=== PATIENT | male | born 1950 | race Two or more races ===

== ENCOUNTER 2018-06-07 04:07 | Inpatient (IN) | payer OTHER, MEDICARE ==
[~2018-06-07] VITALS: Ht 160 cm; Wt 69.4 kg
[2018-06-07] VITALS (9 sets, daily range): BP systolic 114–159; BP diastolic 56–89
[2018-06-07] MEDS ORDERED: IV NORMAL SALINE 500ML BAG 500 ML IV ONE (04:45)
--- NOTE | 2018-06-07 04:53 | PHYS DOC ---
Past Medical History Past Medical History: Diabetes-Type II, High Cholesterol, Hypertension, Other Additional Past Medical Histor: Stomach Ulcers Past Surgical History: Other Additional Past Surgical Histo: Elbow Surgery Alcohol Use: None Drug Use: None Adult General Chief Complaint Chief Complaint: ABDOMINAL PAIN HPI HPI Patient is a 68 year old male who presents with epigastric pain. The patient states he has a history of ulcers. This morning at 3 AM, he was awoke from his sleep with severe epigastric and abdominal pain. The pain was sharp in nature. He took some antacid type medications but the pain only worse and so he came to the ER. He did not have chest pain or shortness of breath. He had no nausea or vomiting. He has otherwise been at baseline health with no recent illness, fever , chills. Denies urinary symptoms. Pain is currently improving since checking in to the emergency department. Review of Systems Review of Systems Constitutional: Denies fever or chills Eyes: Denies HENT: Denies Respiratory: Denies Cardiovascular: No additional information GI: Denies nausea or vomiting : Denies dysuria or hematuria Musculoskeletal: Denies back pain Integument: Denies rash Neurologic: Denies headache All other systems were reviewed and found to be within normal limits, except as documented in this note. Current Medications Current Medications Current Medications Medications (Trade) Dose Ordered Sig/Judy Start Time Stop Time Status Last Admin Dose Admin Famotidine (Pepcid Vial) 20 mg 1X ONCE 06/07/18 05:00 06/07/18 05:01 DC 06/07/18 04:58 20 MG Sodium Chloride 500 ml @ 500 mls/hr 1X ONCE 06/07/18 04:45 06/07/18 05:44 DC 06/07/18 04:48 500 MLS/HR Allergies Allergies Allergies Coded Allergies Type Severity Reaction Last Updated Verified No Known Drug Allergies 06/07/18 No Physical Exam Physical Exam Constitutional: Well developed, well nourished, no acute distress, non-toxic appearance HENT: Normocephalic, atraumatic, bilateral external ears normal, oropharynx moist Eyes: PERRLA, EOMI, conjunctiva normal Neck: Normal range of motion, no tenderness Cardiovascular:Heart rate regular rhythm, no murmur Lungs & Thorax: Bilateral breath sounds clear to auscultation Abdomen: Bowel sounds normal, soft, + TTP over the epigastrium, no guarding or rebound Skin: Warm, dry, no erythema, no rash Back: No tenderness Extremities: No edema Neurologic: Alert and oriented X 3 Psychologic: Affect normal Current Patient Data Vital Signs Vital Signs Date Time Temp Pulse Resp B/P (MAP) Pulse Ox O2 Delivery O2 Flow Rate FiO2 06/07/18 06:25 75 14 138/81 (100) 96 Room Air 06/07/18 04:20 97.4 97.4 Lab Values Laboratory Tests Test 06/07/18 04:43 06/07/18 06:45 White Blood Count 8.8 x10^3/uL (4.0-11.0) Red Blood Count 5.47 x10^6/uL (4.30-5.70) Hemoglobin 10.9 g/dL (13.0-17.5) L Hematocrit 33.1 % (39.0-53.0) L Mean Corpuscular Volume 61 fL (79-100) L Mean Corpuscular Hemoglobin 20 pg (25-35) L Mean Corpuscular Hemoglobin Concent 33 g/dL (31-37) Red Cell Distribution Width 16.9 % (11.5-14.5) H Platelet Count 176 x10^3/uL (140-400) Neutrophils (%) (Auto) 62 % (31-73) Lymphocytes (%) (Auto) 22 % (24-48) L Monocytes (%) (Auto) 9 % (0-9) Eosinophils (%) (Auto) 7 % (0-3) H Basophils (%) (Auto) 1 % (0-3) Neutrophils # (Auto) 5.5 x10^3uL (1.8-7.7) Lymphocytes # (Auto) 1.9 x10^3/uL (1.0-4.8) Monocytes # (Auto) 0.7 x10^3/uL (0.0-1.1) Eosinophils # (Auto) 0.6 x10^3/uL (0.0-0.7) Basophils # (Auto) 0.1 x10^3/uL (0.0-0.2) Platelet Estimate Pending Sodium Level 142 mmol/L (136-145) Potassium Level 4.3 mmol/L (3.5-5.1) Chloride Level 107 mmol/L (98-107) Carbon Dioxide Level 25 mmol/L (21-32) Anion Gap 10 (6-14) Blood Urea Nitrogen 25 mg/dL (8-26) Creatinine 1.5 mg/dL (0.7-1.3) H Estimated GFR (Cockcroft-Gault) 46.3 Glucose Level 264 mg/dL (70-99) H Calcium Level 9.2 mg/dL (8.5-10.1) Total Bilirubin 0.4 mg/dL (0.2-1.0) Direct Bilirubin 0.1 mg/dL (0.0-0.2) Aspartate Amino Transferase (AST) 12 U/L (15-37) L Alanine Aminotransferase (ALT) 22 U/L (16-63) Alkaline Phosphatase 93 U/L (46-116) Troponin I Quantitative 0.019 ng/mL (0.000-0.055) Total Protein 6.9 g/dL (6.4-8.2) Albumin 3.5 g/dL (3.4-5.0) Lipase 127 U/L (73-393) Stool Occult Blood Negative (NEG) Laboratory Tests 06/07/18 04:43 Laboratory Tests 06/07/18 04:43 EKG EKG No STEMI Repeat EKG, done at 6:22 AM shows normal sinus rhythm at a rate of 71 bpm, normal axis, normal intervals, nonspecific ST/T changes, most prominent anteriorly, unchanged compared to the patient's initial EKG. There are no old EKGs for comparison. Interpretation Time: 04:25 Radiology/Procedures Radiology/Procedures [PROCEDURE: CT ABDOMEN PELVIS WO CONTRAST INDICATION: epigastric pain COMPARISON: None. TECHNIQUE: Axial CT images obtained through the abdomen and pelvis without contrast. Limited assessment of solid organ structures and vasculature secondary to lack of intravenous contrast.. One or more of the following individualized dose reduction techniques were utilized for this examination: 1. Automated exposure control; 2. Adjustment of the mA and/or kV according to patient size; 3. Use of iterative reconstruction technique. FINDINGS: Nodular opacity at the left lung base measuring up to about 8 mm with linear component. Mild peribronchial thickening at lung bases. Coronary artery calcific atherosclerosis as well as aortic valvular calcifications. At least moderate calcific atherosclerosis. Small fat-containing inguinal hernias. No intrahepatic bile duct dilation. The gallbladder is somewhat distended at time of exam with some gallstones within. No peripancreatic fluid collection. Duodenal diverticulum. Spleen unremarkable. No left-sided hydronephrosis. Urinary bladder is partially distended. No right-sided hydronephrosis. Colonic diverticulosis. No periappendiceal inflammation. No dilated loops of bowel to suggest obstruction. Degenerative changes the spine with multilevel central canal and neural foraminal stenosis. Mild wedging of some of the vertebral bodies including L3 and L2. IMPRESSION: 1. No evidence of bowel obstruction or appendicitis. 2. The gallbladder somewhat distended at time of exam with suspected gallstones within. Would correlate with symptoms in the region and if the patient has any symptoms of gallbladder disease a ultrasound could be helpful to further evaluate. 3. Linear nodular opacity at the left lung base. The most likely cause is nodular atelectasis given the location and morphology but it may be helpful to obtain a follow-up CT in 3 months to ensure no increase given the nodular component. 4. There is some mild peribronchial thickening identified at the right greater than left lung base with mild nodularity right lung base. Could be inflammatory in nature but would correlate with symptoms to ensure that there is not a infectious causes from causes such as bronchitis. ] Course & Med Decision Making Course & Med Decision Making Pertinent Labs and Imaging studies reviewed. (See chart for details) 04:45: Patient is seen and examined. His symptoms have improved since checking in to the ER although he does continue to have some pain. He is tender over the epigastrium. Standard abdominal pain workup is ordered. He did have an EKG on arrival which does not appear positive for any ST changes concerning for ischemia. Pepcid is ordered. 06:00: Patient is seen for epigastric pain, sudden onset. Hx of ulcer disease. No free air seen on CT scan. Radiologist read pending. Also noted to have mild Cr elevation. IVF's ordered. NATHAN to Dr. Gant. Please f/u on CT and symptom control. Patient given pepcid. 6:45 AM: Patient care was assumed at 6 AM shift change. He presented to the emergency department after awakening at about 3 AM with acute central abdominal discomfort. Patient described it as an intense cramping pain. He was reportedly diaphoretic, and looks poorly when he came in. He had a few episodes of vomiting. He states he had a bowel movement, and he states his stools have been dark recently, but that did not help his pain. After arrival in the emergency department at the time of my assessment he is feeling significantly better and his pain is completely resolved. He did not have any chest pain at any time. He denies any shortness of breath. He does have a history of gastric ulcers, but he states that his ulcer pain is different than this pain and he has never had pain like this before. He is noted to be somewhat anemic. On rectal exam, which I performed, his stool appeared brown. Hemoccult is currently pending. He has no reproducible tenderness to palpation on repeat abdominal exam. His right upper quadrant is nontender and Staley sign is absent. His EKG does show some nonspecific ST/T changes, although repeat EKG is unchanged from his original. His troponin is not elevated. I discussed treatment options with the patient. I do feel that at least overnight observation is appropriate given the acuity of his presentation. I discussed the case with the patient's PCP who will admit the patient for further observation. Dragon Disclaimer Dragon Disclaimer This electronic medical record was generated, in whole or in part, using a voice recognition dictation system. Departure Departure Impression: Primary Impression: Acute abdominal pain Additional Impressions: Anemia Abnormal EKG Disposition: ADMITTED INPATIENT Admitting Physician: Jorge Gore Condition: STABLE Referrals: JORGE GORE MD (PCP) Problem Qualifiers REJI ESCUDERO DO Jun 07, 2018 04:53 DOMINGA GANT MD Jun 07, 2018 06:23
[2018-06-07 04:54] LABS: BASO # 0.1 x10^3/uL (0.0-0.2); BASO % 1 % (0-3); EOS # 0.6 x10^3/uL (0.0-0.7); EOS % 7 % (0-3); HEMATOCRIT 33.1 % (39.0-53.0); HEMOGLOBIN 10.9 g/dL (13.0-17.5); LYMPH # 1.9 x10^3/uL (1.0-4.8); LYMPH % 22 % (24-48); MEAN CORPUSCULAR HEMOGLOBIN 20 pg (25-35); MEAN CORPUSCULAR HGB CONC 33 g/dL (31-37); MEAN CORPUSCULAR VOLUME 61 fL (79-100); MONO # 0.7 x10^3/uL (0.0-1.1); MONO % 9 % (0-9); NEUT # 5.5 x10^3uL (1.8-7.7); NEUT % 62 % (31-73); PLATELET COUNT 176 x10^3/uL (140-400); RED BLOOD COUNT 5.47 x10^6/uL (4.30-5.70); RED CELL DISTRIBUTION WIDTH 16.9 % (11.5-14.5); WHITE BLOOD COUNT 8.8 x10^3/uL (4.0-11.0)
[2018-06-07] MEDS ORDERED: FAMOTIDINE 20 MG/2 ML VIAL IVP ONE (05:00)
[2018-06-07 05:10] LABS: CALCIUM 9.2 mg/dL (8.5-10.1); CREATININE 1.5 mg/dL (0.7-1.3); GFR 46.3; POTASSIUM 4.3 mmol/L (3.5-5.1)
[2018-06-07 05:15] LABS: ALBUMIN 3.5 g/dL (3.4-5.0); DIRECT BILIRUBIN 0.1 mg/dL (0.0-0.2); TOTAL BILIRUBIN 0.4 mg/dL (0.2-1.0); TOTAL PROTEIN 6.9 g/dL (6.4-8.2)
--- NOTE | 2018-06-07 06:00 | EKG ---
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
--- NOTE | 2018-06-07 06:19 | RAD ---
INDICATION: epigastric pain COMPARISON: None. TECHNIQUE: Axial CT images obtained through the abdomen and pelvis without contrast. Limited assessment of solid organ structures and vasculature secondary to lack of intravenous contrast.. One or more of the following individualized dose reduction techniques were utilized for this examination: 1. Automated exposure control; 2. Adjustment of the mA and/or kV according to patient size; 3. Use of iterative reconstruction technique. FINDINGS: Nodular opacity at the left lung base measuring up to about 8 mm with linear component. Mild peribronchial thickening at lung bases. Coronary artery calcific atherosclerosis as well as aortic valvular calcifications. At least moderate calcific atherosclerosis. Small fat-containing inguinal hernias. No intrahepatic bile duct dilation. The gallbladder is somewhat distended at time of exam with some gallstones within. No peripancreatic fluid collection. Duodenal diverticulum. Spleen unremarkable. No left-sided hydronephrosis. Urinary bladder is partially distended. No right-sided hydronephrosis. Colonic diverticulosis. No periappendiceal inflammation. No dilated loops of bowel to suggest obstruction. Degenerative changes the spine with multilevel central canal and neural foraminal stenosis. Mild wedging of some of the vertebral bodies including L3 and L2. IMPRESSION: 1. No evidence of bowel obstruction or appendicitis. 2. The gallbladder somewhat distended at time of exam with suspected gallstones within. Would correlate with symptoms in the region and if the patient has any symptoms of gallbladder disease a ultrasound could be helpful to further evaluate. 3. Linear nodular opacity at the left lung base. The most likely cause is nodular atelectasis given the location and morphology but it may be helpful to obtain a follow-up CT in 3 months to ensure no increase given the nodular component. 4. There is some mild peribronchial thickening identified at the right greater than left lung base with mild nodularity right lung base. Could be inflammatory in nature but would correlate with symptoms to ensure that there is not a infectious causes from causes such as bronchitis. Electronically signed by: Butch Harding MD (06/07/2018 6:16 AM) [id number]
--- NOTE | 2018-06-07 06:28 | EKG ---
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
[2018-06-07 06:53] LABS: FECAL OB PT NEGATIVE (NEG)
[2018-06-07 07:25] LABS: PLT ESTIMATE ADEQUATE (ADEQUATE); POIKILOCYTOSIS PRESENT; POLYCHROMASIA PRESENT
[2018-06-07 07:26] LABS: ANISOCYTOSIS PRESENT; MICROCYTOSIS MARKED; TARGET CELLS MOD; TEAR DROP CELLS FEW
[2018-06-07 07:28] LABS: OVALOCYTES OCC
[2018-06-07 07:29] LABS: HYPOCHROMIA MOD
--- NOTE | 2018-06-07 08:25 | RAD ---
Right upper quadrant abdominal ultrasound, 06/07/2018: HISTORY: Pain The gallbladder appears mildly distended measuring 10 x 3.9 cm. It contains echogenic material with some posterior acoustic shadowing. The appearance is that of a combination of sludge and gallstones. No gallbladder wall thickening is seen. The common hepatic duct is of normal caliber. There is no evidence of a hepatic mass or bile duct dilatation. The pancreas was obscured by overlying bowel. The visualized portions of the right kidney are unremarkable. IMPRESSION: Mildly distended gallbladder containing sludge and calculi. Electronically signed by: Navin Stanford MD (06/07/2018 8:21 AM) [facility]
[2018-06-07] MEDS ORDERED: DEXTROSE 50% 25 GM / 50ML DISP.SYRIN. IV PRN ×2 (09:15→18:45)
[2018-06-07] MEDS ORDERED: METF10007 PO (09:36)
[2018-06-07] MEDS ORDERED: ATOR40TA59 PO (09:36)
[2018-06-07] MEDS ORDERED: GLIP10TA13 PO (09:36)
[2018-06-07] MEDS ORDERED: SITA100T PO (09:36)
[2018-06-07] MEDS ORDERED: LISI10TA2 PO (09:36)
--- NOTE | 2018-06-07 09:50 | PDOC ---
Provider Note Provider Note Pt seen.H&P dictated. #[id number] GERMÁN GORE MD Jun 07, 2018 09:50
--- NOTE | 2018-06-07 10:24 | HP ---
ADMIT DATE: 06/07/2018 LOCATION: [facility] REASON FOR ADMISSION TO THE HOSPITAL: Severe abdominal pain and possible gallbladder attack. HISTORY OF PRESENT ILLNESS: The patient is a 68-year-old male patient who has history of diabetes, hypertension and hyperlipidemia. He was doing relatively well and had severe abdominal pain early this morning. He was very nauseous, vomiting, lightheaded, was brought to the hospital. He had a CT scan which shows possible gallbladder distention. His ultrasound of the abdomen this morning shows gallbladder distention with gallstones. The patient was admitted with acute cholecystitis with gallbladder attack. PAST MEDICAL HISTORY: He has diabetes, hypertension, hyperlipidemia. PAST SURGICAL HISTORY: Stomach ulcers in the past, had EGD, had elbow surgery. ALLERGIES: No known drug allergies. MEDICATIONS AT HOME: The patient is on atorvastatin 40 mg daily, lisinopril 10 mg twice a day, glipizide 10 mg twice a day, metformin 1000 mg twice a day, Januvia 100 mg daily. PERSONAL HISTORY: No history of smoking, alcohol, drug abuse. The patient lives with his . ALLERGIES: No known drug allergies. REVIEW OF SYSTEMS: CARDIAC: No chest pain. GASTROINTESTINAL: Abdominal pain with nausea and vomiting, no diarrhea. Rest of the 14-system was reviewed and negative. PHYSICAL EXAMINATION: GENERAL: The patient is much better this morning. VITAL SIGNS: Temperature 97, pulse 77, respirations 18, blood pressure 138/67, 95 on room air. HEENT: Head is atraumatic. Pupils equal. Oral cavity: No congestion. NECK: Supple. Thyroid not enlarged. JVD not elevated. CHEST: Symmetrical. CARDIOVASCULAR: S1, S2. LUNGS: Clear to auscultation. ABDOMEN: Slight tender in the right upper quadrant. No rebound. Bowel sounds present, no mass palpable. EXTERNAL GENITALIA: No Nicole. RECTAL: Deferred. EXTREMITIES: No calf tenderness, no edema. Pulses 1+. NEUROLOGIC: Cranial nerves intact. Power 5/5 in all extremities. LABORATORY DATA: Shows a white count of 9, hemoglobin 11, platelets 176. Electrolytes show sodium 142, potassium 4.3, chloride 107, bicarbonate 25, anion gap 10, BUN 25, creatinine 1.5, glucose 246. LFTs were normal. Troponin 0.[address] of abdomen and pelvis, which shows gallbladder distention, sonogram shows gallstones in the gallbladder. FINAL IMPRESSION: 1. Acute abdominal pain secondary to gallbladder attack. 2. Gallstones with gallbladder attack. 3. Diabetes. 4. Hypertension. 5. Hyperlipidemia. PLAN: At this time, the patient is admitted to the hospital, n.p.o., IV fluids, surgical consult, probably need laparoscopic cholecystectomy. GERMÁN GORE MD DR: SARAH/jamey JOB#: [id number] / [id number]
--- NOTE | 2018-06-07 10:54 | PDOC2 ---
TITO CARR INTERIOR PAINTER 06/07/18 1054: CONSULT Date of Consult Date of Consult DATE: 06/07/18 TIME: 10:47 Reason for Consult Reason for Consult: cholelithiasis Referring Physician Referring Physician: Dr Oquendo Identification/Chief Complaint Chief Complaint abdominal pain Source Source: Chart review, Patient History of Present Illness Reason for Visit: Admitted with acute onset epigastric pain. Awoke at 3 am in severe pain. Tried maalox and prilosec(was worried about ulcers), however this did not help his pain. Denies n/v. Past Medical History Cardiovascular: HTN, Hyperlipidemia GI: Peptic Ulcer disease Past Surgical History Past Surgical History: No pertinent history Family History Family History: Other (noncontributory to current illness) Social History No ALCOHOL: none Drugs: None Lives: with Family Current Problem List Problem List Problems Medical Problems: (1) Abnormal EKG Status: Acute (2) Acute abdominal pain Status: Acute (3) Anemia Status: Acute Current Medications Current Medications Current Medications Sodium Chloride 500 ml @ 500 mls/hr 1X ONCE IV Last administered on at 04:48; Start 06/07/18 at 04:45; Stop 06/07/18 at 05:44; Status DC Famotidine (Pepcid Vial) 20 mg 1X ONCE IVP Last administered on 06/07/18at 04: 58; Start 06/07/18 at 05:00; Stop 06/07/18 at 05:01; Status DC Insulin Human Lispro (HumaLOG) 0-7 UNITS TIDWMEALS SQ ; Start 06/07/18 at 12:00 Dextrose (Dextrose 50%-Water Syringe) 12.5 gm PRN Q15MIN PRN IV SEE COMMENTS; Start 06/07/18 at 09:15 Dextrose/Sodium Chloride 1,000 ml @ 100 mls/hr Q10H IV ; Start 06/07/18 at 09: 45 Influenza Virus Vaccine (Afluria Trivalent 2320-0023 Syringe) 0.5 ml ONCE ONCE VAX IM ; Start 06/07/18 at 12:00; Stop 06/07/18 at 12:01 Active Scripts Active Reported Glipizide 10 Mg Tablet 1 Tab PO BIDAC Lisinopril 10 Mg Tablet 1 Tab PO BID Atorvastatin Calcium 40 Mg Tablet 1 Tab PO DAILY Januvia (Sitagliptin Phosphate) 100 Mg Tablet 1 Tab PO DAILY Metformin Hcl 1,000 Mg Tablet 1,000 Mg PO BIDWMEALS Allergies Allergies: Coded Allergies: No Known Drug Allergies (Unverified , 06/07/18) ROS General: No: Chills, Other (fevers) PSYCHOLOGICAL ROS: No: Anxiety, Depression Eyes: No Blurry vision, No Double vision HEENT: No: Heacaches, Sore Throat Hematological and Lymphatic: No: Bleeding Problems, Blood Clots Respiratory: No: Cough, SOB with excertion Cardiovascular: No Chest Pain, No Palpitations Gastrointestinal: Yes Other (see hpi) Genitourinary: No Dysuria, No Hematuria Neurological: No Confusion, No Impaired Coord/balance Skin: No Pruritus, No Rash Physical Exam General: Alert, Oriented X3, Cooperative, No acute distress HEENT: PERRLA, Mucous membr. moist/pink Lungs: Clear to auscultation, Normal air movement Heart: Regular rate, Normal S1, Normal S2, No murmurs Abdomen: Normal bowel sounds, Soft, No tenderness, No hepatosplenomegaly Extremities: No clubbing, No cyanosis Skin: No rashes, No breakdown Neuro: Normal gait, Normal speech Psych/Mental Status: Mental status NL, Mood NL MUSCULOSKELETAL: No deformity, No swelling Vitals VITALS Vital Signs Date Time Temp Pulse Resp B/P (MAP) Pulse Ox O2 Delivery O2 Flow Rate FiO2 06/07/18 09:00 97.9 77 18 138/67 (90) 95 Room Air 97.9 Labs Labs Laboratory Tests Test 06/07/18 04:43 06/07/18 06:45 06/07/18 09:04 06/07/18 09:07 White Blood Count 8.8 x10^3/uL (4.0-11.0) Red Blood Count 5.47 x10^6/uL (4.30-5.70) Hemoglobin 10.9 g/dL (13.0-17.5) Hematocrit 33.1 % (39.0-53.0) Mean Corpuscular Volume 61 fL (79-100) Mean Corpuscular Hemoglobin 20 pg (25-35) Mean Corpuscular Hemoglobin Concent 33 g/dL (31-37) Red Cell Distribution Width 16.9 % (11.5-14.5) Platelet Count 176 x10^3/uL (140-400) Neutrophils (%) (Auto) 62 % (31-73) Lymphocytes (%) (Auto) 22 % (24-48) Monocytes (%) (Auto) 9 % (0-9) Eosinophils (%) (Auto) 7 % (0-3) Basophils (%) (Auto) 1 % (0-3) Neutrophils # (Auto) 5.5 x10^3uL (1.8-7.7) Lymphocytes # (Auto) 1.9 x10^3/uL (1.0-4.8) Monocytes # (Auto) 0.7 x10^3/uL (0.0-1.1) Eosinophils # (Auto) 0.6 x10^3/uL (0.0-0.7) Basophils # (Auto) 0.1 x10^3/uL (0.0-0.2) Platelet Estimate Adequate (ADEQUATE) Large Platelets Occ Giant Platelets Occ Polychromasia Present Hypochromasia Mod Poikilocytosis Present Anisocytosis Present Microcytosis Marked Target Cells Mod Tear Drop Cells Few Ovalocytes Occ Sodium Level 142 mmol/L (136-145) Potassium Level 4.3 mmol/L (3.5-5.1) Chloride Level 107 mmol/L (98-107) Carbon Dioxide Level 25 mmol/L (21-32) Anion Gap 10 (6-14) Blood Urea Nitrogen 25 mg/dL (8-26) Creatinine 1.5 mg/dL (0.7-1.3) Estimated GFR (Cockcroft-Gault) 46.3 Glucose Level 264 mg/dL (70-99) Calcium Level 9.2 mg/dL (8.5-10.1) Total Bilirubin 0.4 mg/dL (0.2-1.0) Direct Bilirubin 0.1 mg/dL (0.0-0.2) Aspartate Amino Transf (AST/SGOT) 12 U/L (15-37) Alanine Aminotransferase (ALT/SGPT) 22 U/L (16-63) Alkaline Phosphatase 93 U/L (46-116) Troponin I Quantitative 0.019 ng/mL (0.000-0.055) Total Protein 6.9 g/dL (6.4-8.2) Albumin 3.5 g/dL (3.4-5.0) Lipase 127 U/L (73-393) Stool Occult Blood Negative (NEG) Glucose (Fingerstick) 89 mg/dL (70-99) 77 mg/dL (70-99) Laboratory Tests Test 06/07/18 04:43 06/07/18 06:45 06/07/18 09:04 06/07/18 09:07 White Blood Count 8.8 x10^3/uL (4.0-11.0) Red Blood Count 5.47 x10^6/uL (4.30-5.70) Hemoglobin 10.9 g/dL (13.0-17.5) Hematocrit 33.1 % (39.0-53.0) Mean Corpuscular Volume 61 fL (79-100) Mean Corpuscular Hemoglobin 20 pg (25-35) Mean Corpuscular Hemoglobin Concent 33 g/dL (31-37) Red Cell Distribution Width 16.9 % (11.5-14.5) Platelet Count 176 x10^3/uL (140-400) Neutrophils (%) (Auto) 62 % (31-73) Lymphocytes (%) (Auto) 22 % (24-48) Monocytes (%) (Auto) 9 % (0-9) Eosinophils (%) (Auto) 7 % (0-3) Basophils (%) (Auto) 1 % (0-3) Neutrophils # (Auto) 5.5 x10^3uL (1.8-7.7) Lymphocytes # (Auto) 1.9 x10^3/uL (1.0-4.8) Monocytes # (Auto) 0.7 x10^3/uL (0.0-1.1) Eosinophils # (Auto) 0.6 x10^3/uL (0.0-0.7) Basophils # (Auto) 0.1 x10^3/uL (0.0-0.2) Platelet Estimate Adequate (ADEQUATE) Large Platelets Occ Giant Platelets Occ Polychromasia Present Hypochromasia Mod Poikilocytosis Present Anisocytosis Present Microcytosis Marked Target Cells Mod Tear Drop Cells Few Ovalocytes Occ Sodium Level 142 mmol/L (136-145) Potassium Level 4.3 mmol/L (3.5-5.1) Chloride Level 107 mmol/L (98-107) Carbon Dioxide Level 25 mmol/L (21-32) Anion Gap 10 (6-14) Blood Urea Nitrogen 25 mg/dL (8-26) Creatinine 1.5 mg/dL (0.7-1.3) Estimated GFR (Cockcroft-Gault) 46.3 Glucose Level 264 mg/dL (70-99) Calcium Level 9.2 mg/dL (8.5-10.1) Total Bilirubin 0.4 mg/dL (0.2-1.0) Direct Bilirubin 0.1 mg/dL (0.0-0.2) Aspartate Amino Transf (AST/SGOT) 12 U/L (15-37) Alanine Aminotransferase (ALT/SGPT) 22 U/L (16-63) Alkaline Phosphatase 93 U/L (46-116) Troponin I Quantitative 0.019 ng/mL (0.000-0.055) Total Protein 6.9 g/dL (6.4-8.2) Albumin 3.5 g/dL (3.4-5.0) Lipase 127 U/L (73-393) Stool Occult Blood Negative (NEG) Glucose (Fingerstick) 89 mg/dL (70-99) 77 mg/dL (70-99) Assessment/Plan Assessment/Plan Symptomatic cholelithiasis Noted lung findings on CT, CXR pending will review with Dr Mike knowles NPO MORE MCGARRY MD 06/07/18 1506: CONSULT Assessment/Plan Assessment/Plan pt seen, interviewed and examined offered l/s julissa explained risks including but not limited to bleeding, infection, injury to bowel, liver or bile ducts with resultant need for further interventions, possible open procedure he will proceed Thanks for consult TITO CARR APRN Jun 07, 2018 10:54 MORE MCGARRY MD Jun 07, 2018 15:06
[2018-06-07] MEDS ORDERED: IV RINGERS,LACTATED 1000ML 1,000 ML IV SCH (11:18)
[2018-06-07] MEDS ORDERED: fentaNYL PF VIAL 100 MCG/2 ML VIAL IV PRN ×2 (11:30)
[2018-06-07] MEDS ORDERED: MORPHINE SULFATE 2 MG/ML VIAL. IV PRN (11:30)
[2018-06-07] MEDS ORDERED: PROCHLORPERAZINE 10 MG/2 ML VIAL. IV PRN (11:30)
[2018-06-07] MEDS ORDERED: LIDOCAINE 1% PF 2 ML VIAL. ID PRN (11:30)
[2018-06-07] MEDS ORDERED: HYDROmorphone 2 MG/ML VIAL IV PRN (11:30)
[2018-06-07] MEDS ORDERED: ONDANSETRON PF 4 MG/2 ML VIAL. IV PRN ×2 (11:30→18:45)
[2018-06-07 11:41] LABS: PROTHROMBIN TIME PATIENT 12.7 SEC (11.7-14.0)
[2018-06-07] MEDS: IV DEXTROSE 5% - 0.9 % NACL 1,000 ML IV SCH ×2 (11:43→19:45)
[2018-06-07] MEDS: INSULIN LISPRO 300 UNITS/3 ML INSULN.PEN. SQ SCH ×2 (12:00→17:00)
--- NOTE | 2018-06-07 13:03 | RAD ---
Chest, 2 views, 06/07/2018: HISTORY: Preop evaluation for gallbladder surgery The heart size is normal. No pulmonary infiltrate is seen. There is no evidence of pleural fluid. Mild spurring is present in the spine. IMPRESSION: No acute cardiopulmonary abnormality is detected. Electronically signed by: Navin Stanford MD (06/07/2018 12:59 PM) [facility]
[2018-06-07] MEDS ORDERED: MIDAZOLAM HCL/PF 2 MG/2 ML VIAL. ONE (14:03)
[2018-06-07] MEDS ORDERED: fentaNYL PF VIAL 100 MCG/2 ML VIAL ONE (14:03)
[2018-06-07] MEDS ORDERED: ROCURONIUM 100 MG/10 ML VIAL. ONE (14:03)
[2018-06-07] MEDS ORDERED: SEVOFLURANE 61 TO 120 MINUTES. IH ONE ×2 (14:03→17:48)
[2018-06-07] MEDS ORDERED: NEOSTIGMINE 10 MG/10 ML VIAL. ONE ×2 (14:03→14:04)
[2018-06-07] MEDS ORDERED: LIDOCAINE 2% PF Vial for OR 5 ML VIAL. ONE (14:04)
[2018-06-07] MEDS ORDERED: GLYCOPYRROLATE 1 MG/5 ML VIAL. ONE (14:04)
[2018-06-07] MEDS ORDERED: PROPOFOL 20 ML IV ONE (14:04)
[2018-06-07] MEDS ORDERED: ONDANSETRON PF 4 MG/2 ML VIAL. ONE (14:04)
[2018-06-07] MEDS ORDERED: DEXAMETHASONE SOD PHOS 20 MG/5 ML VIAL. ONE (14:04)
[2018-06-07] MEDS ORDERED: GLUCAGON,HUMAN RECOMBINANT 1 MG/ML VIAL. ONE (15:33)
[2018-06-07] MEDS ORDERED: IOHEXOL 300 MG/ML 100ML VIAL. ONE (15:33)
[2018-06-07] MEDS ORDERED: SURGICEL HEMOSTAT 4X8 EACH. ONE (15:33)
[2018-06-07] MEDS ORDERED: BUPIVAC MPF-EPI 0.5%-1:200000 30 ML VIAL. ONE (15:33)
[2018-06-07] MEDS ORDERED: ePHEDrine PF IN SALINE 50 MG/5 ML DISP.SYRIN IV ONE (17:04)
[2018-06-07] MEDS ORDERED: MORPHINE SULFATE 10 MG/ML VIAL. ONE (17:26)
[2018-06-07] MEDS ORDERED: IOHEXOL 300 MG/ML 100ML VIAL. IV ONE (17:30)
[2018-06-07] MEDS ORDERED: BUPIVAC MPF-EPI 0.5%-1:200000 30 ML VIAL. INJ ONE (17:30)
[2018-06-07] MEDS ORDERED: PHENYLEPHRINE in 0.9% NACL PF 1 MG/10 ML SYRINGE. IV ONE (17:47)
--- NOTE | 2018-06-07 18:40 | PDOC ---
BRIEF OPERATIVE NOTE Date: Jun 07, 2018 Pre-Op Diagnosis symptomatic cholelithiasis Post-Op Diagnosis same, abdominal adhesions Procedure Performed l/s cholecystectomy TITI Surgeon Mike Utility Sales Representative Yuki HUGO Anesthesia Type: General Blood Loss 25cc IV Fluid 700cc Specimens Obtained GB Findings omental adhesions to abdominal wall adhesions between liver and abd wall/diaphragm Complications none Operative Note Wk # [id number] MORE MCGARRY MD Jun 07, 2018 18:40
[2018-06-07] MEDS ORDERED: 0.9 % SODIUM CHLORIDE 10 ML DISP.SYRIN. IV PRN (18:45)
[2018-06-07] MEDS ORDERED: diphenhydrAMINE HCL 25 MG CAPSULE PO PRN (18:45)
--- NOTE | 2018-06-07 20:06 | OP ---
DATE OF SURGERY: 06/07/2018 PREOPERATIVE DIAGNOSIS: Symptomatic cholelithiasis. POSTOPERATIVE DIAGNOSIS: Symptomatic cholelithiasis with abdominal adhesions. PROCEDURES: 1. Laparoscopic cholecystectomy. 2. Lysis of adhesions. SURGEON: Brad Mcgarry MD CAR HOPPER: BETHEL Lerner ANESTHESIA: General endotracheal. ESTIMATED BLOOD LOSS: 25 mL. IV: 700 mL. INDICATIONS: The patient is a 68-year-old with acute abdominal pain. Ultrasound shows stones and sludge in his gallbladder. He is brought for cholecystectomy. OPERATIVE FINDINGS: There were several dense adhesions between the liver and the diaphragm and abdominal wall. There were omental adhesions in the midline, upper abdomen and toward the left. The remainder of the abdomen failed to reveal obvious abnormalities. The gallbladder was edematous. DESCRIPTION OF PROCEDURE: The patient brought to the operating suite, given a general endotracheal anesthetic and the abdomen prepped and draped in usual sterile fashion. A supraumbilical incision was infiltrated with local anesthetic, incised and a 5 mm Visiport used to safely gain access into the abdominal cavity. Pneumoperitoneum established. Camera inserted. Inspection carried out with results as noted above. Due to the omental adhesions, the only open port location was the lateral port site and as such, the port was placed under direct vision. This allowed using a "pop" scissor and laparoscopic LigaSure to take down the omental adhesions and expose the upper abdomen. Similarly, we used the LigaSure to divide the adhesions between the liver and abdominal wall and diaphragm. This allowed placement of the epigastric and midclavicular ports under direct vision and the gallbladder was retracted superolaterally. Omental adhesions were carefully taken down with blunt and cautery dissection to expose the cystic duct and cystic artery. The duct was clipped on the gallbladder side and attempt at cholangiogram was made. Despite two attempts with fluoroscopy and contrast injection, I was unable to cannulate the cystic duct adequately to get a cholangiogram. As such, it was clipped x 3 with large clips and divided, taking care to avoid injury or compromise the common duct. The cystic artery was clipped and divided prior to the division of the cystic duct to help confirm anatomy. The gallbladder was then freed from the bed with cautery dissection. A posterior vessel encountered far way up the fossa was controlled with a series of clips. Gallbladder was placed in the EndoCatch bag and the fossa checked for adequate hemostasis. This was present and there was no evidence of a bile leak. A 19-[place] round David drain was brought through the epigastric port out the lateral port, sewn to the skin with a silk stitch and left in the subhepatic space for postoperative drainage. Table returned to level. Gallbladder delivered through the epigastric incision and the epigastric incision closed with interrupted 0 Vicryl suture. Intra-abdominal pressure decreased to 6 cm of water. No bleeding from the epigastric closure or from the midclavicular port site after its removal or at the drain site. Abdomen decompressed, camera removed, no bleeding seen. Skin incisions closed with subcuticular 4-0 Monocryl. Steri-Strips and sterile dressings applied. The patient was awakened from his anesthetic and taken to the recovery room in satisfactory condition. BRAD MCGARRY MD DR: BELTRAN/[email or web address] JOB#: [id number] / [id number]
[2018-06-07] MEDS: HYDROcodone/APAP 5/325MG 1 TAB TABLET PO PRN (20:34)
[2018-06-07] MEDS: DOCUSATE SODIUM 100 MG CAPSULE. PO SCH (20:34)
--- NOTE | 2018-06-07 21:36 | EKG ---
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
[2018-06-07] MEDS: HYDROmorphone 2 MG/ML VIAL IV PRN (22:11)
[2018-06-08] MEDS: POTASSIUM CL 20MEQ-0.45% NACL 1,000 ML IV SCH ×2 (01:34→10:20)
[2018-06-08] MEDS: HYDROcodone/APAP 5/325MG 1 TAB TABLET PO PRN ×4 (01:34→22:18)
[2018-06-08 03:00] VITALS: BP 108/62
[2018-06-08] MEDS: IV DEXTROSE 5% - 0.9 % NACL 1,000 ML IV SCH (05:45)
[2018-06-08 07:00] VITALS: BP 125/75
[2018-06-08] MEDS: INSULIN LISPRO 300 UNITS/3 ML INSULN.PEN. SQ SCH ×3 (08:02→17:17)
[2018-06-08] MEDS: DOCUSATE SODIUM 100 MG CAPSULE. PO SCH ×2 (08:26→21:05)
[2018-06-08] MEDS: ENOXAPARIN 40 MG/0.4 ML SYRINGE. SQ SCH (08:28)
--- NOTE | 2018-06-08 09:23 | PDOC ---
PROGRESS NOTES Objective Objective Vital Signs Date Time Temp Pulse Resp B/P (MAP) Pulse Ox O2 Delivery O2 Flow Rate FiO2 06/08/18 08:26 18 Room Air 06/08/18 07:00 97.9 108 125/75 (92) 92 2.0 97.9 Intake and Output 06/08/18 07:00 Intake Total 3150 ml Output Total 80 ml Balance 3070 ml Intake Oral 0 ml IV Total 3150 ml Output Urine Total 0 ml Drainage Total 45 ml Estimated Blood Loss 35 ml Physical Exam Abdomen: Normal bowel sounds, Soft, No tenderness, No hepatosplenomegaly Heart: Regular rate, Normal S1, Normal S2, No murmurs Extremities: No clubbing, No cyanosis General: Alert, Oriented X3, Cooperative, No acute distress HEENT: PERRLA, Mucous membr. moist/pink Lungs: Clear to auscultation, Normal air movement MUSCULOSKELETAL: No deformity, No swelling Neuro: Normal gait, Normal speech Psych/Mental Status: Mental status NL, Mood NL Skin: No rashes, No breakdown Diagnosis Problem List Problems Medical Problems: (1) Abnormal EKG Status: Acute (2) Acute abdominal pain Status: Acute (3) Anemia Status: Acute Assessment Assessment Problems Medical Problems: (1) Abnormal EKG Status: Acute (2) Acute abdominal pain Status: Acute (3) Anemia Status: Acute Plan Plan of Care Problems Medical Problems: (1) Abnormal EKG Status: Acute (2) Acute abdominal pain Status: Acute (3) Anemia Status: Acute Comment Review of Relevant I have reviewed the following items chastity (where applicable) has been applied. Labs Laboratory Tests Test 06/07/18 11:15 06/07/18 12:02 06/07/18 18:50 06/08/18 08:02 Prothrombin Time 12.7 SEC (11.7-14.0) Prothromb Time International Ratio 1.0 (0.8-1.1) Troponin I Quantitative 0.021 ng/mL (0.000-0.055) Glucose (Fingerstick) 108 mg/dL (70-99) 226 mg/dL (70-99) 304 mg/dL (70-99) Medications Current Medications Acetaminophen/ Hydrocodone Bitart (Lortab 5/325) 1 tab PRN Q4HRS PRN PO MILD PAIN Last administered on 06/08/18at 08:26; Start 06/07/18 at 18:45 Acetaminophen/ Hydrocodone Bitart (Lortab 5/325) 2 tab PRN Q4HRS PRN PO MODERATE PAIN, SEVERE PAIN; Start 06/07/18 at 18:45 Bupivacaine HCl/ Epinephrine Bitart (Sensorcain-Mpf Epi 0.5%-1:525410) 30 ml STK -MED ONCE .ROUTE ; Start 06/07/18 at 15:33; Stop 06/07/18 at 16:33; Status DC Bupivacaine HCl/ Epinephrine Bitart (Sensorcain-Mpf Epi 0.5%-1:176097) 30 ml STK -MED ONCE INJ Last administered on 06/07/18at 17:30; Start 06/07/18 at 17:30; Stop 06/07/18 at 17:37; Status DC Cefazolin Sodium/ Dextrose 50 ml @ 100 mls/hr 1X PREOP PRN IV Pre Op Dose Last administered on 06/07/18at 16:55; Start 06/08/18 at 06:00; Stop 06/08/18 at 18:00 Cefazolin Sodium/ Dextrose 50 ml @ As Directed STK-MED ONCE IV ; Start at 15:05; Stop 06/07/18 at 15:06; Status DC Cellulose (Surgicel Hemostat 4x8) 1 each STK-MED ONCE .ROUTE ; Start 06/07/18 at 15:33; Stop 06/07/18 at 16:34; Status DC Dexamethasone Sodium Phosphate (Decadron) 20 mg STK-MED ONCE .ROUTE ; Start at 14:04; Stop 06/07/18 at 14:06; Status DC Dextrose (Dextrose 50%-Water Syringe) 12.5 gm PRN Q15MIN PRN IV SEE COMMENTS; Start 06/07/18 at 18:45 Dextrose/Sodium Chloride 1,000 ml @ 100 mls/hr Q10H IV Last administered on at 11:43; Start 06/07/18 at 09:45 Diphenhydramine HCl (Benadryl) 25 mg PRN Q6HRS PRN PO ITCHING; Start 06/07/18 at 18:45 Docusate Sodium (Colace) 100 mg BID PO Last administered on 06/08/18at 08:26; Start 06/07/18 at 21:00 Enoxaparin Sodium (Lovenox 40mg Syringe) 40 mg Q24H SQ Last administered on at 08:28; Start 06/08/18 at 09:00 Ephedrine Sulfate (ePHEDrine PF IN SALINE SYRINGE) 50 mg STK-MED ONCE IV ; Start 06/07/18 at 17:04; Stop 06/07/18 at 17:05; Status DC Fentanyl Citrate (Fentanyl 2ml Vial) 25 mcg PRN Q5MIN PRN IV MILD PAIN; Start 06/07/18 at 11:30; Stop 06/07/18 at 18:00; Status DC Fentanyl Citrate (Fentanyl 2ml Vial) 50 mcg PRN Q5MIN PRN IV MODERATE TO SEVERE PAIN; Start 06/07/18 at 11:30; Stop 06/07/18 at 18:00; Status DC Fentanyl Citrate (Fentanyl 2ml Vial) 100 mcg STK-MED ONCE .ROUTE ; Start at 14:03; Stop 06/07/18 at 14:05; Status DC Glucagon (Glucagen) 1 mg STK-MED ONCE .ROUTE ; Start 06/07/18 at 15:33; Stop 06/07/18 at 16:33; Status DC Glycopyrrolate (Robinul) 1 mg STK-MED ONCE .ROUTE ; Start 06/07/18 at 14:04; Stop 06/07/18 at 14:05; Status DC Hydromorphone HCl (Dilaudid) 0.5 mg PRN Q10MIN PRN IV SEV PAIN, Second choice; Start 06/07/18 at 11:30; Stop 06/07/18 at 18:00; Status DC Hydromorphone HCl (Dilaudid) 0.5 mg PRN Q3HRS PRN IV PAIN Last administered on 06/07/18at 22:11; Start 06/07/18 at 18:45 Influenza Virus Vaccine (Afluria Trivalent [id number] Syringe) 0.5 ml ONCE ONCE VAX IM ; Start 06/07/18 at 12:00; Stop 06/07/18 at 12:01; Status DC Insulin Human Lispro (HumaLOG) 0-7 UNITS TIDWMEALS SQ Last administered on at 08:02; Start 06/07/18 at 12:00 Iohexol (Omnipaque 300 Mg/ml) 100 ml STK-MED ONCE .ROUTE ; Start 06/07/18 at 15 :33; Stop 06/07/18 at 16:34; Status DC Iohexol (Omnipaque 300 Mg/ml) 100 ml STK-MED ONCE IV Last administered on 06/07at 17:30; Start 06/07/18 at 17:30; Stop 06/07/18 at 17:37; Status DC Lidocaine HCl (Lidocaine Pf 2% Vial) 5 ml STK-MED ONCE .ROUTE ; Start 06/07/18 at 14:04; Stop 06/07/18 at 14:06; Status DC Lidocaine HCl (Xylocaine-Mpf 1% 2ml Vial) 2 ml 1X PRN PRN ID IV START; Start 06/07/18 at 11:30; Stop 06/07/18 at 18:00; Status DC Midazolam HCl (Versed) 2 mg STK-MED ONCE .ROUTE ; Start 06/07/18 at 14:03; Stop 06/07/18 at 14:05; Status DC Morphine Sulfate (Morphine Sulfate) 1 mg PRN Q10MIN PRN IV SEVERE PAIN; Start 06/07/18 at 11:30; Stop 06/07/18 at 18:00; Status DC Morphine Sulfate (Morphine Sulfate) 10 mg STK-MED ONCE .ROUTE ; Start 06/07/18 at 17:26; Stop 06/07/18 at 17:27; Status DC Neostigmine Methylsulfate (Bloxiverz) 10 mg STK-MED ONCE .ROUTE ; Start at 14:03; Stop 06/07/18 at 14:05; Status DC Neostigmine Methylsulfate (Bloxiverz) 10 mg STK-MED ONCE .ROUTE ; Start at 14:04; Stop 06/07/18 at 14:06; Status DC Ondansetron HCl (Zofran) 4 mg PRN Q6HRS PRN IV NAUSEA/VOMITING; Start at 11:30; Stop 06/07/18 at 18:00; Status DC Ondansetron HCl (Zofran) 4 mg PRN Q6HRS PRN IV NAUESA, 1ST CHOICE; Start 06/07 at 18:45 Ondansetron HCl (Zofran) 4 mg STK-MED ONCE .ROUTE ; Start 06/07/18 at 14:04; Stop 06/07/18 at 14:06; Status DC Phenylephrine HCl (PHENYLEPHRINE in 0.9% NACL PF) 1 mg STK-MED ONCE IV ; Start 06/07/18 at 17:47; Stop 06/07/18 at 17:48; Status DC Potassium Chloride/Sodium Chloride 1,000 ml @ 75 mls/hr [id number] IV Last administered on 06/08/18at 01:34; Start 06/07/18 at 21:00 Prochlorperazine Edisylate (Compazine) 5 mg PACU PRN PRN IV NAUSEA, MRX1; Start 06/07/18 at 11:30; Stop 06/07/18 at 18:00; Status DC Propofol 20 ml @ As Directed STK-MED ONCE IV ; Start 06/07/18 at 14:04; Stop 06/07/18 at 14:06; Status DC Ringer's Solution 1,000 ml @ 30 mls/hr Q24H IV Last administered on at 15:00; Start 06/07/18 at 11:18; Stop 06/07/18 at 23:17; Status DC Rocuronium [place] (Zemuron) 100 mg STK-MED ONCE .ROUTE ; Start 06/07/18 at 14: 03; Stop 06/07/18 at 14:05; Status DC Sevoflurane (Ultane) 60 ml STK-MED ONCE IH ; Start 06/07/18 at 14:03; Stop at 14:05; Status DC Sevoflurane (Ultane) 60 ml STK-MED ONCE IH ; Start 06/07/18 at 17:48; Stop at 17:49; Status DC Sodium Chloride (Normal Saline Flush) 3 ml QSHIFT PRN IV AFTER MEDS AND BLOOD DRAWS; Start 06/07/18 at 18:45 Vitals/I & O Vital Sign - Last 24 Hours 06/07/18 06/07/18 06/07/18 06/07/18 10:00 11:00 13:39 18:43 Temp 98.1 98.4 97.5 98.1 98.4 97.5 Pulse 69 76 86 Resp 18 16 18 B/P (MAP) 114/62 (79) 148/73 142/82 Pulse Ox 94 14 100 O2 Delivery Room Air Room Air Simple Mask O2 Flow Rate 10 06/07/18 06/07/18 06/07/18 06/07/18 18:43 18:58 19:00 19:13 Temp 97.4 97.4 Pulse 84 94 85 Resp 18 20 18 B/P (MAP) 156/82 157/75 (102) 166/68 Pulse Ox 98 94 95 O2 Delivery Mask Simple Mask Nasal Cannula Nasal Cannula O2 Flow Rate 10 10 2 06/07/18 06/07/18 06/07/18 06/07/18 19:28 19:28 20:15 20:30 Temp 97.5 97.5 Pulse 84 95 98 Resp 18 20 20 B/P (MAP) 167/79 151/73 (99) 159/84 (109) Pulse Ox 95 94 91 O2 Delivery Nasal Cannula Mask Nasal Cannula Nasal Cannula O2 Flow Rate 2 2 06/07/18 06/07/18 06/07/18 06/07/18 20:34 20:45 21:15 21:34 Pulse 93 95 Resp 18 20 20 20 B/P (MAP) 151/81 (104) 124/85 (98) Pulse Ox 91 91 O2 Delivery Nasal Cannula Nasal Cannula Nasal Cannula Nasal Cannula 06/07/18 06/07/18 06/07/18 06/07/18 21:45 22:11 22:41 22:45 Pulse 95 95 Resp 20 18 20 19 B/P (MAP) 129/89 (102) 143/76 (98) Pulse Ox 91 92 O2 Delivery Nasal Cannula Nasal Cannula Nasal Cannula Nasal Cannula 06/08/18 06/08/18 06/08/18 06/08/18 01:34 03:00 07:00 08:26 Temp 97.7 97.9 97.7 97.9 Pulse 108 108 Resp 20 20 18 18 B/P (MAP) 108/62 (77) 125/75 (92) Pulse Ox 94 92 O2 Delivery Nasal Cannula Nasal Cannula Nasal Cannula Room Air O2 Flow Rate 2.0 2.0 Intake and Output 06/07/18 06/07/18 06/08/18 15:00 23:00 07:00 Intake Total 2150 ml 1000 ml Output Total 80 ml 0 ml Balance 2070 ml 1000 ml GERMÁN GORE MD Jun 08, 2018 09:23
--- NOTE | 2018-06-08 10:11 | PDOC ---
SURGICAL PROGRESS NOTE Subjective some pain, but controlled Vital Signs Vital Signs Date Time Temp Pulse Resp B/P (MAP) Pulse Ox O2 Delivery O2 Flow Rate FiO2 06/08/18 08:26 18 Room Air 06/08/18 07:00 97.9 108 125/75 (92) 92 2.0 97.9 I&O Intake and Output 06/08/18 07:00 Intake Total 3150 ml Output Total 80 ml Balance 3070 ml Intake Oral 0 ml IV Total 3150 ml Output Urine Total 0 ml Drainage Total 45 ml Estimated Blood Loss 35 ml PATIENT HAS A RIDER: No General: Alert, Oriented X3, No acute distress Abdomen: Soft, Other (ANJU with serosanguineous output) Labs Laboratory Tests Test 06/07/18 04:43 06/07/18 06:45 06/07/18 09:04 06/07/18 09:07 White Blood Count 8.8 x10^3/uL (4.0-11.0) Red Blood Count 5.47 x10^6/uL (4.30-5.70) Hemoglobin 10.9 g/dL (13.0-17.5) Hematocrit 33.1 % (39.0-53.0) Mean Corpuscular Volume 61 fL (79-100) Mean Corpuscular Hemoglobin 20 pg (25-35) Mean Corpuscular Hemoglobin Concent 33 g/dL (31-37) Red Cell Distribution Width 16.9 % (11.5-14.5) Platelet Count 176 x10^3/uL (140-400) Neutrophils (%) (Auto) 62 % (31-73) Lymphocytes (%) (Auto) 22 % (24-48) Monocytes (%) (Auto) 9 % (0-9) Eosinophils (%) (Auto) 7 % (0-3) Basophils (%) (Auto) 1 % (0-3) Neutrophils # (Auto) 5.5 x10^3uL (1.8-7.7) Lymphocytes # (Auto) 1.9 x10^3/uL (1.0-4.8) Monocytes # (Auto) 0.7 x10^3/uL (0.0-1.1) Eosinophils # (Auto) 0.6 x10^3/uL (0.0-0.7) Basophils # (Auto) 0.1 x10^3/uL (0.0-0.2) Platelet Estimate Adequate (ADEQUATE) Large Platelets Occ Giant Platelets Occ Polychromasia Present Hypochromasia Mod Poikilocytosis Present Anisocytosis Present Microcytosis Marked Target Cells Mod Tear Drop Cells Few Ovalocytes Occ Sodium Level 142 mmol/L (136-145) Potassium Level 4.3 mmol/L (3.5-5.1) Chloride Level 107 mmol/L (98-107) Carbon Dioxide Level 25 mmol/L (21-32) Anion Gap 10 (6-14) Blood Urea Nitrogen 25 mg/dL (8-26) Creatinine 1.5 mg/dL (0.7-1.3) Estimated GFR (Cockcroft-Gault) 46.3 Glucose Level 264 mg/dL (70-99) Calcium Level 9.2 mg/dL (8.5-10.1) Total Bilirubin 0.4 mg/dL (0.2-1.0) Direct Bilirubin 0.1 mg/dL (0.0-0.2) Aspartate Amino Transf (AST/SGOT) 12 U/L (15-37) Alanine Aminotransferase (ALT/SGPT) 22 U/L (16-63) Alkaline Phosphatase 93 U/L (46-116) Troponin I Quantitative 0.019 ng/mL (0.000-0.055) Total Protein 6.9 g/dL (6.4-8.2) Albumin 3.5 g/dL (3.4-5.0) Lipase 127 U/L (73-393) Stool Occult Blood Negative (NEG) Glucose (Fingerstick) 89 mg/dL (70-99) 77 mg/dL (70-99) Test 06/07/18 11:15 06/07/18 12:02 06/07/18 18:50 06/08/18 08:02 Prothrombin Time 12.7 SEC (11.7-14.0) Prothromb Time International Ratio 1.0 (0.8-1.1) Troponin I Quantitative 0.021 ng/mL (0.000-0.055) Glucose (Fingerstick) 108 mg/dL (70-99) 226 mg/dL (70-99) 304 mg/dL (70-99) Laboratory Tests Test 06/07/18 11:15 06/07/18 12:02 06/07/18 18:50 10/24/18 08:02 Prothrombin Time 12.7 SEC (11.7-14.0) Prothromb Time International Ratio 1.0 (0.8-1.1) Troponin I Quantitative 0.021 ng/mL (0.000-0.055) Glucose (Fingerstick) 108 mg/dL (70-99) 226 mg/dL (70-99) 304 mg/dL (70-99) Problem List Problems Medical Problems: (1) Abnormal EKG Status: Acute (2) Acute abdominal pain Status: Acute (3) Anemia Status: Acute Assessment/Plan POD 1 l/s julissa continue supportive care MORE MCGARRY MD Jun 08, 2018 10:11
--- NOTE | 2018-06-08 10:20 | PDOC ---
PROGRESS NOTES Subjective Subjective feels better today Objective Objective Vital Signs Date Time Temp Pulse Resp B/P (MAP) Pulse Ox O2 Delivery O2 Flow Rate FiO2 06/08/18 08:26 18 Room Air 06/08/18 08:00 2.0 06/08/18 07:00 97.9 108 125/75 (92) 92 97.9 Intake and Output 06/08/18 07:00 Intake Total 3150 ml Output Total 80 ml Balance 3070 ml Intake Oral 0 ml IV Total 3150 ml Output Urine Total 0 ml Drainage Total 45 ml Estimated Blood Loss 35 ml Physical Exam Abdomen: Soft, Other (ANJU with serosanguineous output) Heart: Regular rate, Normal S1, Normal S2, No murmurs Extremities: No clubbing, No cyanosis General: Alert, Oriented X3, No acute distress HEENT: PERRLA, Mucous membr. moist/pink Lungs: Clear to auscultation, Normal air movement MUSCULOSKELETAL: No deformity, No swelling Neuro: Normal gait, Normal speech Psych/Mental Status: Mental status NL, Mood NL Skin: No rashes, No breakdown Diagnosis Problem List Problems Medical Problems: (1) Abnormal EKG Status: Acute (2) Acute abdominal pain Status: Acute (3) Anemia Status: Acute Assessment Assessment Problems Medical Problems: (1) Abnormal EKG Status: Acute (2) Acute abdominal pain Status: Acute (3) Anemia Status: Acute FINAL IMPRESSION: 1. Acute abdominal pain secondary to gallbladder attack. 2. Gallstones with gallbladder attack. 3. Diabetes. 4. Hypertension. 5. Hyperlipidemia. PLAN: POD#1,Lap Cholecystectomy for gall stones. doing well, normal post op course. dvt prevention. At this time, the patient is admitted to the hospital, n.p.o., IV fluids, surgical consult, probably need laparoscopic cholecystectomy. Plan Plan of Care Problems Medical Problems: (1) Abnormal EKG Status: Acute (2) Acute abdominal pain Status: Acute (3) Anemia Status: Acute Comment Review of Relevant I have reviewed the following items chastity (where applicable) has been applied. Labs Laboratory Tests Test 06/07/18 11:15 06/07/18 12:02 06/07/18 18:50 06/08/18 08:02 Prothrombin Time 12.7 SEC (11.7-14.0) Prothromb Time International Ratio 1.0 (0.8-1.1) Troponin I Quantitative 0.021 ng/mL (0.000-0.055) Glucose (Fingerstick) 108 mg/dL (70-99) 226 mg/dL (70-99) 304 mg/dL (70-99) Medications Current Medications Acetaminophen/ Hydrocodone Bitart (Lortab 5/325) 1 tab PRN Q4HRS PRN PO MILD PAIN Last administered on 06/08/18at 08:26; Start 06/07/18 at 18:45 Acetaminophen/ Hydrocodone Bitart (Lortab 5/325) 2 tab PRN Q4HRS PRN PO MODERATE PAIN, SEVERE PAIN; Start 06/07/18 at 18:45 Bupivacaine HCl/ Epinephrine Bitart (Sensorcain-Mpf Epi 0.5%-1:306691) 30 ml STK -MED ONCE .ROUTE ; Start 06/07/18 at 15:33; Stop 06/07/18 at 16:33; Status DC Bupivacaine HCl/ Epinephrine Bitart (Sensorcain-Mpf Epi 0.5%-1:109473) 30 ml STK -MED ONCE INJ Last administered on 06/07/18at 17:30; Start 06/07/18 at 17:30; Stop 06/07/18 at 17:37; Status DC Cefazolin Sodium/ Dextrose 50 ml @ 100 mls/hr 1X PREOP PRN IV Pre Op Dose Last administered on 06/07/18at 16:55; Start 06/08/18 at 06:00; Stop 06/08/18 at 18:00 Cefazolin Sodium/ Dextrose 50 ml @ As Directed STK-MED ONCE IV ; Start at 15:05; Stop 06/07/18 at 15:06; Status DC Cellulose (Surgicel Hemostat 4x8) 1 each STK-MED ONCE .ROUTE ; Start 06/07/18 at 15:33; Stop 06/07/18 at 16:34; Status DC Dexamethasone Sodium Phosphate (Decadron) 20 mg STK-MED ONCE .ROUTE ; Start at 14:04; Stop 06/07/18 at 14:06; Status DC Dextrose (Dextrose 50%-Water Syringe) 12.5 gm PRN Q15MIN PRN IV SEE COMMENTS; Start 06/07/18 at 18:45 Diphenhydramine HCl (Benadryl) 25 mg PRN Q6HRS PRN PO ITCHING; Start 06/07/18 at 18:45 Docusate Sodium (Colace) 100 mg BID PO Last administered on 06/08/18at 08:26; Start 06/07/18 at 21:00 Enoxaparin Sodium (Lovenox 40mg Syringe) 40 mg Q24H SQ Last administered on at 08:28; Start 06/08/18 at 09:00 Ephedrine Sulfate (ePHEDrine PF IN SALINE SYRINGE) 50 mg STK-MED ONCE IV ; Start 06/07/18 at 17:04; Stop 06/07/18 at 17:05; Status DC Fentanyl Citrate (Fentanyl 2ml Vial) 25 mcg PRN Q5MIN PRN IV MILD PAIN; Start 06/07/18 at 11:30; Stop 06/07/18 at 18:00; Status DC Fentanyl Citrate (Fentanyl 2ml Vial) 50 mcg PRN Q5MIN PRN IV MODERATE TO SEVERE PAIN; Start 06/07/18 at 11:30; Stop 06/07/18 at 18:00; Status DC Fentanyl Citrate (Fentanyl 2ml Vial) 100 mcg STK-MED ONCE .ROUTE ; Start at 14:03; Stop 06/07/18 at 14:05; Status DC Glucagon (Glucagen) 1 mg STK-MED ONCE .ROUTE ; Start 06/07/18 at 15:33; Stop 06/07/18 at 16:33; Status DC Glycopyrrolate (Robinul) 1 mg STK-MED ONCE .ROUTE ; Start 06/07/18 at 14:04; Stop 06/07/18 at 14:05; Status DC Hydromorphone HCl (Dilaudid) 0.5 mg PRN Q10MIN PRN IV SEV PAIN, Second choice; Start 06/07/18 at 11:30; Stop 06/07/18 at 18:00; Status DC Hydromorphone HCl (Dilaudid) 0.5 mg PRN Q3HRS PRN IV PAIN Last administered on 06/07/18at 22:11; Start 06/07/18 at 18:45 Influenza Virus Vaccine (Afluria Trivalent [id number] Syringe) 0.5 ml ONCE ONCE VAX IM ; Start 06/07/18 at 12:00; Stop 06/07/18 at 12:01; Status DC Insulin Human Lispro (HumaLOG) 0-7 UNITS TIDWMEALS SQ Last administered on at 08:02; Start 06/07/18 at 12:00 Iohexol (Omnipaque 300 Mg/ml) 100 ml STK-MED ONCE .ROUTE ; Start 06/07/18 at 15 :33; Stop 06/07/18 at 16:34; Status DC Iohexol (Omnipaque 300 Mg/ml) 100 ml STK-MED ONCE IV Last administered on 06/07at 17:30; Start 06/07/18 at 17:30; Stop 06/07/18 at 17:37; Status DC Lidocaine HCl (Lidocaine Pf 2% Vial) 5 ml STK-MED ONCE .ROUTE ; Start 06/07/18 at 14:04; Stop 06/07/18 at 14:06; Status DC Lidocaine HCl (Xylocaine-Mpf 1% 2ml Vial) 2 ml 1X PRN PRN ID IV START; Start 06/07/18 at 11:30; Stop 06/07/18 at 18:00; Status DC Midazolam HCl (Versed) 2 mg STK-MED ONCE .ROUTE ; Start 06/07/18 at 14:03; Stop 06/07/18 at 14:05; Status DC Morphine Sulfate (Morphine Sulfate) 1 mg PRN Q10MIN PRN IV SEVERE PAIN; Start 06/07/18 at 11:30; Stop 06/07/18 at 18:00; Status DC Morphine Sulfate (Morphine Sulfate) 10 mg STK-MED ONCE .ROUTE ; Start 06/07/18 at 17:26; Stop 06/07/18 at 17:27; Status DC Neostigmine Methylsulfate (Bloxiverz) 10 mg STK-MED ONCE .ROUTE ; Start at 14:03; Stop 06/07/18 at 14:05; Status DC Neostigmine Methylsulfate (Bloxiverz) 10 mg STK-MED ONCE .ROUTE ; Start at 14:04; Stop 06/07/18 at 14:06; Status DC Ondansetron HCl (Zofran) 4 mg PRN Q6HRS PRN IV NAUSEA/VOMITING; Start at 11:30; Stop 06/07/18 at 18:00; Status DC Ondansetron HCl (Zofran) 4 mg PRN Q6HRS PRN IV NAUESA, 1ST CHOICE; Start 06/07 at 18:45 Ondansetron HCl (Zofran) 4 mg STK-MED ONCE .ROUTE ; Start 06/07/18 at 14:04; Stop 06/07/18 at 14:06; Status DC Phenylephrine HCl (PHENYLEPHRINE in 0.9% NACL PF) 1 mg STK-MED ONCE IV ; Start 06/07/18 at 17:47; Stop 06/07/18 at 17:48; Status DC Potassium Chloride/Sodium Chloride 1,000 ml @ 75 mls/hr [id number] IV Last administered on 06/08/18at 01:34; Start 06/07/18 at 21:00 Prochlorperazine Edisylate (Compazine) 5 mg PACU PRN PRN IV NAUSEA, MRX1; Start 06/07/18 at 11:30; Stop 06/07/18 at 18:00; Status DC Propofol 20 ml @ As Directed STK-MED ONCE IV ; Start 06/07/18 at 14:04; Stop 06/07/18 at 14:06; Status DC Ringer's Solution 1,000 ml @ 30 mls/hr Q24H IV Last administered on at 15:00; Start 06/07/18 at 11:18; Stop 06/07/18 at 23:17; Status DC Rocuronium [employer] (Zemuron) 100 mg STK-MED ONCE .ROUTE ; Start 06/07/18 at 14: 03; Stop 06/07/18 at 14:05; Status DC Sevoflurane (Ultane) 60 ml STK-MED ONCE IH ; Start 06/07/18 at 14:03; Stop at 14:05; Status DC Sevoflurane (Ultane) 60 ml STK-MED ONCE IH ; Start 06/07/18 at 17:48; Stop at 17:49; Status DC Sodium Chloride (Normal Saline Flush) 3 ml QSHIFT PRN IV AFTER MEDS AND BLOOD DRAWS; Start 06/07/18 at 18:45 Vitals/I & O Vital Sign - Last 24 Hours 06/07/18 06/07/18 06/07/18 06/07/18 11:00 13:39 18:43 18:43 Temp 98.1 98.4 97.5 98.1 98.4 97.5 Pulse 69 76 86 Resp 18 16 18 B/P (MAP) 114/62 (79) 148/73 142/82 Pulse Ox 94 14 100 O2 Delivery Room Air Simple Mask Mask O2 Flow Rate 10 10 06/07/18 06/07/18 06/07/18 06/07/18 18:58 19:00 19:13 19:28 Temp 97.4 97.5 97.4 97.5 Pulse 84 94 85 84 Resp 18 20 18 18 B/P (MAP) 156/82 157/75 (102) 166/68 167/79 Pulse Ox 98 94 95 95 O2 Delivery Simple Mask Nasal Cannula Nasal Cannula Nasal Cannula O2 Flow Rate 10 2 2 06/07/18 06/07/18 06/07/18 06/07/18 19:28 20:15 20:30 20:34 Pulse 95 98 Resp 20 20 18 B/P (MAP) 151/73 (99) 159/84 (109) Pulse Ox 94 91 O2 Delivery Mask Nasal Cannula Nasal Cannula Nasal Cannula O2 Flow Rate 2 06/07/18 06/07/18 06/07/18 06/07/18 20:45 21:15 21:34 21:45 Pulse 93 95 95 Resp 20 20 20 20 B/P (MAP) 151/81 (104) 124/85 (98) 129/89 (102) Pulse Ox 91 91 91 O2 Delivery Nasal Cannula Nasal Cannula Nasal Cannula Nasal Cannula 06/07/18 06/07/18 06/07/18 06/08/18 22:11 22:41 22:45 01:34 Pulse 95 Resp 18 20 19 20 B/P (MAP) 143/76 (98) Pulse Ox 92 O2 Delivery Nasal Cannula Nasal Cannula Nasal Cannula Nasal Cannula 06/08/18 06/08/18 06/08/18 06/08/18 03:00 07:00 08:00 08:26 Temp 97.7 97.9 97.7 97.9 Pulse 108 108 Resp 20 18 18 B/P (MAP) 108/62 (77) 125/75 (92) Pulse Ox 94 92 O2 Delivery Nasal Cannula Nasal Cannula Nasal Cannula Room Air O2 Flow Rate 2.0 2.0 2.0 Intake and Output 06/07/18 06/07/18 06/08/18 15:00 23:00 07:00 Intake Total 2150 ml 1000 ml Output Total 80 ml 0 ml Balance 2070 ml 1000 ml GERMÁN GORE MD Jun 08, 2018 10:20
[2018-06-08 11:00] VITALS: BP 126/70
[2018-06-08 15:00] VITALS: BP 133/73
[2018-06-08] MEDS: HYDROmorphone 2 MG/ML VIAL IV PRN (15:59)
[2018-06-08] MEDS ORDERED: fentaNYL PF VIAL 100 MCG/2 ML VIAL IV PRN (17:15)
[2018-06-08 19:20] VITALS: BP 120/76
[2018-06-08 23:00] VITALS: BP 139/84
[2018-06-09 03:00] VITALS: BP 140/84
[2018-06-09] MEDS: HYDROcodone/APAP 5/325MG 1 TAB TABLET PO PRN ×3 (04:25→20:14)
[2018-06-09] MEDS: HYDROmorphone 2 MG/ML VIAL IV PRN (04:34)
[2018-06-09 04:48] LABS: BASO % 0 % (0-3); EOS # 0.1 x10^3/uL (0.0-0.7); EOS % 1 % (0-3); HEMATOCRIT 31.9 % (39.0-53.0); HEMOGLOBIN 10.5 g/dL (13.0-17.5); LYMPH # 1.2 x10^3/uL (1.0-4.8); LYMPH % 11 % (24-48); MEAN CORPUSCULAR HEMOGLOBIN 20 pg (25-35); MEAN CORPUSCULAR HGB CONC 33 g/dL (31-37); MEAN CORPUSCULAR VOLUME 60 fL (79-100); MONO % 9 % (0-9); NEUT # 8.6 x10^3uL (1.8-7.7); NEUT % 79 % (31-73); PLATELET COUNT 156 x10^3/uL (140-400); RED BLOOD COUNT 5.28 x10^6/uL (4.30-5.70); RED CELL DISTRIBUTION WIDTH 16.7 % (11.5-14.5); WHITE BLOOD COUNT 10.8 x10^3/uL (4.0-11.0)
[2018-06-09 05:27] LABS: ALBUMIN 3.1 g/dL (3.4-5.0); CALCIUM 9.4 mg/dL (8.5-10.1); CREATININE 1.3 mg/dL (0.7-1.3); DIRECT BILIRUBIN 0.2 mg/dL (0.0-0.2); GFR 54.6; POTASSIUM 4.3 mmol/L (3.5-5.1); TOTAL BILIRUBIN 0.8 mg/dL (0.2-1.0); TOTAL PROTEIN 7.3 g/dL (6.4-8.2)
[2018-06-09 07:00] VITALS: BP 149/85
[2018-06-09] MEDS: DOCUSATE SODIUM 100 MG CAPSULE. PO SCH ×2 (09:00→20:14)
[2018-06-09] MEDS: ENOXAPARIN 40 MG/0.4 ML SYRINGE. SQ SCH (09:00)
[2018-06-09] MEDS: INSULIN LISPRO 300 UNITS/3 ML INSULN.PEN. SQ SCH ×3 (09:04→17:21)
--- NOTE | 2018-06-09 09:54 | PDOC ---
PROGRESS NOTES Subjective Subjective c/o bloating in stomach Objective Objective Vital Signs Date Time Temp Pulse Resp B/P (MAP) Pulse Ox O2 Delivery O2 Flow Rate FiO2 06/09/18 09:04 Nasal Cannula 2.0 06/09/18 07:00 100.0 105 18 149/85 (106) 92 100.0 Intake and Output 06/09/18 07:00 Intake Total 1010 ml Output Total 2120 ml Balance -1110 ml Intake Oral 1010 ml Output Urine Total 2050 ml Drainage Total 70 ml Physical Exam Abdomen: Soft, Other (dec bowel sounds) Heart: Regular rate, Normal S1, Normal S2, No murmurs Extremities: No clubbing, No cyanosis General: Alert, Oriented X3, No acute distress HEENT: PERRLA, Mucous membr. moist/pink Lungs: Clear to auscultation, Normal air movement MUSCULOSKELETAL: No deformity, No swelling Neuro: Normal gait, Normal speech Psych/Mental Status: Mental status NL, Mood NL Skin: No rashes, No breakdown Diagnosis Problem List Problems Medical Problems: (1) Abnormal EKG Status: Acute (2) Acute abdominal pain Status: Acute (3) Anemia Status: Acute Assessment Assessment Problems Medical Problems: (1) Abnormal EKG Status: Acute (2) Acute abdominal pain Status: Acute (3) Anemia Status: Acute FINAL IMPRESSION: 1. Acute abdominal pain secondary to gallbladder attack. 2. Gallstones with gallbladder attack. 3. Diabetes. 4. Hypertension. 5. Hyperlipidemia. PLAN: POD#2,Lap Cholecystectomy for gall stones. low grade fever 100 post op illeus dvt prevention. labs ok iv fluids. encourage ambulation At this time, the patient is admitted to the hospital, n.p.o., IV fluids, surgical consult, probably need laparoscopic cholecystectomy. Plan Plan of Care Problems Medical Problems: (1) Abnormal EKG Status: Acute (2) Acute abdominal pain Status: Acute (3) Anemia Status: Acute Comment Review of Relevant I have reviewed the following items chastity (where applicable) has been applied. Labs Laboratory Tests Test 06/08/18 10:59 06/08/18 16:33 06/08/18 20:50 06/09/18 04:10 Glucose (Fingerstick) 313 mg/dL (70-99) 291 mg/dL (70-99) 269 mg/dL (70-99) White Blood Count 10.8 x10^3/uL (4.0-11.0) Red Blood Count 5.28 x10^6/uL (4.30-5.70) Hemoglobin 10.5 g/dL (13.0-17.5) Hematocrit 31.9 % (39.0-53.0) Mean Corpuscular Volume 60 fL (79-100) Mean Corpuscular Hemoglobin 20 pg (25-35) Mean Corpuscular Hemoglobin Concent 33 g/dL (31-37) Red Cell Distribution Width 16.7 % (11.5-14.5) Platelet Count 156 x10^3/uL (140-400) Neutrophils (%) (Auto) 79 % (31-73) Lymphocytes (%) (Auto) 11 % (24-48) Monocytes (%) (Auto) 9 % (0-9) Eosinophils (%) (Auto) 1 % (0-3) Basophils (%) (Auto) 0 % (0-3) Neutrophils # (Auto) 8.6 x10^3uL (1.8-7.7) Lymphocytes # (Auto) 1.2 x10^3/uL (1.0-4.8) Monocytes # (Auto) 1.0 x10^3/uL (0.0-1.1) Eosinophils # (Auto) 0.1 x10^3/uL (0.0-0.7) Basophils # (Auto) 0.0 x10^3/uL (0.0-0.2) Sodium Level 136 mmol/L (136-145) Potassium Level 4.3 mmol/L (3.5-5.1) Chloride Level 102 mmol/L (98-107) Carbon Dioxide Level 27 mmol/L (21-32) Anion Gap 7 (6-14) Blood Urea Nitrogen 20 mg/dL (8-26) Creatinine 1.3 mg/dL (0.7-1.3) Estimated GFR (Cockcroft-Gault) 54.6 Glucose Level 259 mg/dL (70-99) Calcium Level 9.4 mg/dL (8.5-10.1) Total Bilirubin 0.8 mg/dL (0.2-1.0) Direct Bilirubin 0.2 mg/dL (0.0-0.2) Aspartate Amino Transf (AST/SGOT) 21 U/L (15-37) Alanine Aminotransferase (ALT/SGPT) 26 U/L (16-63) Alkaline Phosphatase 62 U/L (46-116) Total Protein 7.3 g/dL (6.4-8.2) Albumin 3.1 g/dL (3.4-5.0) Medications Current Medications Fentanyl Citrate (Fentanyl 2ml Vial) 25 mcg PRN Q3HRS PRN IV PAIN Last administered on 06/08/18at 17:13; Start 06/08/18 at 17:15 Vitals/I & O Vital Sign - Last 24 Hours 06/08/18 06/08/18 06/08/18 06/08/18 11:00 13:19 15:00 15:59 Temp 98.0 97.5 98.0 97.5 Pulse 102 108 Resp 18 18 18 20 B/P (MAP) 126/70 (88) 133/73 (93) Pulse Ox 95 92 O2 Delivery Nasal Cannula Room Air Nasal Cannula Room Air O2 Flow Rate 2.0 2.0 06/08/18 06/08/18 06/08/18 06/08/18 17:13 19:20 20:00 22:18 Temp 98.4 98.4 Pulse 104 Resp 18 16 20 B/P (MAP) 120/76 (91) Pulse Ox 91 O2 Delivery Nasal Cannula Room Air Room Air Room Air O2 Flow Rate 2.0 06/08/18 06/09/18 06/09/18 06/09/18 23:00 03:00 04:25 04:34 Temp 99.7 98.8 99.7 98.8 Pulse 110 111 Resp 24 18 20 20 B/P (MAP) 139/84 (102) 140/84 (102) Pulse Ox 92 92 O2 Delivery Room Air Room Air 06/09/18 06/09/18 06/09/18 06/09/18 07:00 07:50 09:00 09:04 Temp 100.0 100.0 Pulse 105 Resp 18 B/P (MAP) 149/85 (106) Pulse Ox 92 O2 Delivery Room Air Room Air Nasal Cannula O2 Flow Rate 2.0 2.0 06/09/18 09:04 O2 Delivery Nasal Cannula O2 Flow Rate 2.0 Intake and Output 06/08/18 06/08/18 06/09/18 15:00 23:00 07:00 Intake Total 270 ml 500 ml 240 ml Output Total 820 ml 1300 ml Balance 270 ml -320 ml -1060 ml GERMÁN GORE MD Jun 09, 2018 09:54
[2018-06-09 11:00] VITALS: BP 133/73
--- NOTE | 2018-06-09 13:05 | PDOC ---
SURGICAL PROGRESS NOTE Subjective feels better now that some flatus no emesis Vital Signs Vital Signs Date Time Temp Pulse Resp B/P (MAP) Pulse Ox O2 Delivery O2 Flow Rate FiO2 06/09/18 11:00 98.0 105 20 133/73 (93) 97 2.0 98.0 06/09/18 10:15 Room Air I&O Intake and Output 06/09/18 07:00 Intake Total 1010 ml Output Total 2120 ml Balance -1110 ml Intake Oral 1010 ml Output Urine Total 2050 ml Drainage Total 70 ml General: Alert, Oriented X3, Cooperative, No acute distress Abdomen: Soft, Other (fernando serosang, incisional TTP) Labs Laboratory Tests Test 06/07/18 18:50 06/08/18 08:02 06/08/18 10:59 06/08/18 16:33 Glucose (Fingerstick) 226 mg/dL (70-99) 304 mg/dL (70-99) 313 mg/dL (70-99) 291 mg/dL (70-99) Test 06/08/18 20:50 06/09/18 04:10 06/09/18 08:22 06/09/18 11:25 Glucose (Fingerstick) 269 mg/dL (70-99) 267 mg/dL (70-99) 262 mg/dL (70-99) White Blood Count 10.8 x10^3/uL (4.0-11.0) Red Blood Count 5.28 x10^6/uL (4.30-5.70) Hemoglobin 10.5 g/dL (13.0-17.5) Hematocrit 31.9 % (39.0-53.0) Mean Corpuscular Volume 60 fL (79-100) Mean Corpuscular Hemoglobin 20 pg (25-35) Mean Corpuscular Hemoglobin Concent 33 g/dL (31-37) Red Cell Distribution Width 16.7 % (11.5-14.5) Platelet Count 156 x10^3/uL (140-400) Neutrophils (%) (Auto) 79 % (31-73) Lymphocytes (%) (Auto) 11 % (24-48) Monocytes (%) (Auto) 9 % (0-9) Eosinophils (%) (Auto) 1 % (0-3) Basophils (%) (Auto) 0 % (0-3) Neutrophils # (Auto) 8.6 x10^3uL (1.8-7.7) Lymphocytes # (Auto) 1.2 x10^3/uL (1.0-4.8) Monocytes # (Auto) 1.0 x10^3/uL (0.0-1.1) Eosinophils # (Auto) 0.1 x10^3/uL (0.0-0.7) Basophils # (Auto) 0.0 x10^3/uL (0.0-0.2) Sodium Level 136 mmol/L (136-145) Potassium Level 4.3 mmol/L (3.5-5.1) Chloride Level 102 mmol/L (98-107) Carbon Dioxide Level 27 mmol/L (21-32) Anion Gap 7 (6-14) Blood Urea Nitrogen 20 mg/dL (8-26) Creatinine 1.3 mg/dL (0.7-1.3) Estimated GFR (Cockcroft-Gault) 54.6 Glucose Level 259 mg/dL (70-99) Calcium Level 9.4 mg/dL (8.5-10.1) Total Bilirubin 0.8 mg/dL (0.2-1.0) Direct Bilirubin 0.2 mg/dL (0.0-0.2) Aspartate Amino Transf (AST/SGOT) 21 U/L (15-37) Alanine Aminotransferase (ALT/SGPT) 26 U/L (16-63) Alkaline Phosphatase 62 U/L (46-116) Total Protein 7.3 g/dL (6.4-8.2) Albumin 3.1 g/dL (3.4-5.0) Laboratory Tests Test 06/08/18 16:33 06/08/18 20:50 06/09/18 04:10 06/09/18 08:22 Glucose (Fingerstick) 291 mg/dL (70-99) 269 mg/dL (70-99) 267 mg/dL (70-99) White Blood Count 10.8 x10^3/uL (4.0-11.0) Red Blood Count 5.28 x10^6/uL (4.30-5.70) Hemoglobin 10.5 g/dL (13.0-17.5) Hematocrit 31.9 % (39.0-53.0) Mean Corpuscular Volume 60 fL (79-100) Mean Corpuscular Hemoglobin 20 pg (25-35) Mean Corpuscular Hemoglobin Concent 33 g/dL (31-37) Red Cell Distribution Width 16.7 % (11.5-14.5) Platelet Count 156 x10^3/uL (140-400) Neutrophils (%) (Auto) 79 % (31-73) Lymphocytes (%) (Auto) 11 % (24-48) Monocytes (%) (Auto) 9 % (0-9) Eosinophils (%) (Auto) 1 % (0-3) Basophils (%) (Auto) 0 % (0-3) Neutrophils # (Auto) 8.6 x10^3uL (1.8-7.7) Lymphocytes # (Auto) 1.2 x10^3/uL (1.0-4.8) Monocytes # (Auto) 1.0 x10^3/uL (0.0-1.1) Eosinophils # (Auto) 0.1 x10^3/uL (0.0-0.7) Basophils # (Auto) 0.0 x10^3/uL (0.0-0.2) Sodium Level 136 mmol/L (136-145) Potassium Level 4.3 mmol/L (3.5-5.1) Chloride Level 102 mmol/L (98-107) Carbon Dioxide Level 27 mmol/L (21-32) Anion Gap 7 (6-14) Blood Urea Nitrogen 20 mg/dL (8-26) Creatinine 1.3 mg/dL (0.7-1.3) Estimated GFR (Cockcroft-Gault) 54.6 Glucose Level 259 mg/dL (70-99) Calcium Level 9.4 mg/dL (8.5-10.1) Total Bilirubin 0.8 mg/dL (0.2-1.0) Direct Bilirubin 0.2 mg/dL (0.0-0.2) Aspartate Amino Transf (AST/SGOT) 21 U/L (15-37) Alanine Aminotransferase (ALT/SGPT) 26 U/L (16-63) Alkaline Phosphatase 62 U/L (46-116) Total Protein 7.3 g/dL (6.4-8.2) Albumin 3.1 g/dL (3.4-5.0) Test 06/09/18 11:25 Glucose (Fingerstick) 262 mg/dL (70-99) Problem List Problems Medical Problems: (1) Abnormal EKG Status: Acute (2) Acute abdominal pain Status: Acute (3) Anemia Status: Acute Assessment/Plan s/p julissa low grade fever early in day feeling better plan DC in AM if afebrile TITO CARR APRN Jun 09, 2018 13:05
[2018-06-09 15:00] VITALS: BP 129/80
--- NOTE | 2018-06-09 16:09 | PATHOLOGY ---
[facility] Accession Number: [id number] . 01 Material submitted: . GALLBLADDER . 01 Clinical history: . Cholelithiasis . 02 Diagnosis: Gallbladder, laparoscopic cholecystectomy: - Cholelithiasis. - Acute and chronic cholecystitis with focally increased eosinophils. . (JP:vjm;06/09/2018) AGA/06/09/2018 . 02 Comment: There is no evidence of malignancy. . (JPM:vjm;06/09/2018) . 02 Electronically signed: . Irving Velez MD, Pathologist NPI- [id number] . 01 Gross description: . The specimen is received in formalin, labeled "Cristina, Ubaldo, gallbladder", is an intact 7.5 x 2.8 x 2.0 cm gallbladder with a watson-green, smooth serosa. The lumen is filled with yellow-green viscous bile admixed with several irregular black-brown calculi and its fragments measuring 1.2 x 0.6 x 0.5 cm in aggregate. The mucosa is watson brown to green. The wall is fibrous and measures up to 0.1 cm thick. No discrete masses are present. Slip Feeder tissue is submitted in A1. ([facility]; 06/08/2018) SHS/SHS . 02 Microscopic: . . . 02 Pathologist provided ICD-10: K80.12 . 02 CPT . 036773 Specimen Comment: A courtesy copy of this report has been sent to Specimen Comment: [phone], , . Specimen Comment: Report sent to , DR GORE / DR KIRK Specimen Comment: A duplicate report has been generated due to demographic updates. Performed at: 01 [facility] [address] [facility] [address], [place] [id number] MD Rob Nunn MD Phone: [phone] Performed at: 02 [facility] [address] [place] [id number] MD Irving Velez MD Phone: [phone]
[2018-06-09 19:00] VITALS: BP 133/82
[2018-06-09 23:00] VITALS: BP 129/83
[2018-06-10] MEDS: HYDROcodone/APAP 5/325MG 1 TAB TABLET PO PRN ×4 (00:11→18:07)
[2018-06-10 03:00] VITALS: BP 124/79
[2018-06-10 07:00] VITALS: BP 130/87
[2018-06-10] MEDS: DOCUSATE SODIUM 100 MG CAPSULE. PO SCH (09:15)
[2018-06-10] MEDS: ENOXAPARIN 40 MG/0.4 ML SYRINGE. SQ SCH (09:16)
[2018-06-10] MEDS: INSULIN LISPRO 300 UNITS/3 ML INSULN.PEN. SQ SCH ×3 (09:22→17:20)
--- NOTE | 2018-06-10 10:07 | PDOC ---
PROGRESS NOTES Subjective Subjective feels better ,passing gas,started on diet Objective Objective Vital Signs Date Time Temp Pulse Resp B/P (MAP) Pulse Ox O2 Delivery O2 Flow Rate FiO2 06/10/18 09:24 18 97 Room Air 2.0 06/10/18 07:00 97.7 90 130/87 (101) 97.7 Intake and Output 06/10/18 07:00 Intake Total 1080 ml Output Total 1100 ml Balance -20 ml Intake Oral 1080 ml Output Urine Total 950 ml Drainage Total 150 ml # Voids 5 Physical Exam Abdomen: Soft, Other (fernando serosang, incisional TTP) Heart: Regular rate, Normal S1, Normal S2, No murmurs Extremities: No clubbing, No cyanosis General: Alert, Oriented X3, Cooperative, No acute distress HEENT: PERRLA, Mucous membr. moist/pink Lungs: Clear to auscultation, Normal air movement MUSCULOSKELETAL: No deformity, No swelling Neuro: Normal gait, Normal speech Psych/Mental Status: Mental status NL, Mood NL Skin: No rashes, No breakdown Diagnosis Problem List Problems Medical Problems: (1) Abnormal EKG Status: Acute (2) Acute abdominal pain Status: Acute (3) Anemia Status: Acute Assessment Assessment Problems Medical Problems: (1) Abnormal EKG Status: Acute (2) Acute abdominal pain Status: Acute (3) Anemia Status: Acute FINAL IMPRESSION: 1. Acute abdominal pain secondary to gallbladder attack. 2. Gallstones with gallbladder attack. 3. Diabetes. 4. Hypertension. 5. Hyperlipidemia. PLAN: discharge home today? POD#3,Lap Cholecystectomy for gall stones. low grade fever resolved post op illeus improving dvt prevention. labs ok d/c iv fluids. encourage ambulation Plan Plan of Care Problems Medical Problems: (1) Abnormal EKG Status: Acute (2) Acute abdominal pain Status: Acute (3) Anemia Status: Acute Comment Review of Relevant I have reviewed the following items chastity (where applicable) has been applied. Labs Laboratory Tests Test 06/09/18 11:25 06/09/18 16:47 06/09/18 21:20 06/10/18 07:14 Glucose (Fingerstick) 262 mg/dL (70-99) 248 mg/dL (70-99) 310 mg/dL (70-99) 205 mg/dL (70-99) Vitals/I & O Vital Sign - Last 24 Hours 06/09/18 06/09/18 06/09/18 06/09/18 10:15 11:00 15:00 19:00 Temp 98.0 98.1 98.7 98.0 98.1 98.7 Pulse 105 93 101 Resp 20 16 18 B/P (MAP) 133/73 (93) 129/80 (96) 133/82 (99) Pulse Ox 97 94 94 O2 Delivery Room Air O2 Flow Rate 2.0 2.0 06/09/18 06/09/18 06/09/18 06/10/18 20:00 20:14 23:00 00:11 Temp 99.0 99.0 Pulse 95 Resp 16 18 16 B/P (MAP) 129/83 (98) Pulse Ox 95 O2 Delivery Room Air Room Air Room Air 06/10/18 06/10/18 06/10/18 06/10/18 01:15 03:00 07:00 09:24 Temp 98.1 97.7 98.1 97.7 Pulse 95 90 Resp 16 16 20 18 B/P (MAP) 124/79 (94) 130/87 (101) Pulse Ox 94 97 97 O2 Delivery Room Air 2L Room Air O2 Flow Rate 2.0 Intake and Output 06/09/18 06/09/18 06/10/18 15:00 23:00 07:00 Intake Total 300 ml 300 ml 480 ml Output Total 350 ml 750 ml Balance 300 ml -50 ml -270 ml GERMÁN GORE MD Jun 10, 2018 10:07
[2018-06-10] MEDS ORDERED: HYDR-2758 PO (10:09)
[2018-06-10 11:00] VITALS: BP 140/77
--- NOTE | 2018-06-10 12:49 | PDOC ---
SURGICAL PROGRESS NOTE Subjective tolerating diet ambulating pain improved Vital Signs Vital Signs Date Time Temp Pulse Resp B/P (MAP) Pulse Ox O2 Delivery O2 Flow Rate FiO2 06/10/18 11:00 97.7 87 20 140/77 (98) 93 2l 97.7 06/10/18 09:24 2.0 I&O Intake and Output 06/10/18 07:00 Intake Total 1080 ml Output Total 1100 ml Balance -20 ml Intake Oral 1080 ml Output Urine Total 950 ml Drainage Total 150 ml # Voids 5 General: Alert, Oriented X3, Cooperative, No acute distress Abdomen: Soft, Other (drains serosang) Labs Laboratory Tests Test 06/08/18 16:33 06/08/18 20:50 06/09/18 04:10 06/09/18 08:22 Glucose (Fingerstick) 291 mg/dL (70-99) 269 mg/dL (70-99) 267 mg/dL (70-99) White Blood Count 10.8 x10^3/uL (4.0-11.0) Red Blood Count 5.28 x10^6/uL (4.30-5.70) Hemoglobin 10.5 g/dL (13.0-17.5) Hematocrit 31.9 % (39.0-53.0) Mean Corpuscular Volume 60 fL (79-100) Mean Corpuscular Hemoglobin 20 pg (25-35) Mean Corpuscular Hemoglobin Concent 33 g/dL (31-37) Red Cell Distribution Width 16.7 % (11.5-14.5) Platelet Count 156 x10^3/uL (140-400) Neutrophils (%) (Auto) 79 % (31-73) Lymphocytes (%) (Auto) 11 % (24-48) Monocytes (%) (Auto) 9 % (0-9) Eosinophils (%) (Auto) 1 % (0-3) Basophils (%) (Auto) 0 % (0-3) Neutrophils # (Auto) 8.6 x10^3uL (1.8-7.7) Lymphocytes # (Auto) 1.2 x10^3/uL (1.0-4.8) Monocytes # (Auto) 1.0 x10^3/uL (0.0-1.1) Eosinophils # (Auto) 0.1 x10^3/uL (0.0-0.7) Basophils # (Auto) 0.0 x10^3/uL (0.0-0.2) Sodium Level 136 mmol/L (136-145) Potassium Level 4.3 mmol/L (3.5-5.1) Chloride Level 102 mmol/L (98-107) Carbon Dioxide Level 27 mmol/L (21-32) Anion Gap 7 (6-14) Blood Urea Nitrogen 20 mg/dL (8-26) Creatinine 1.3 mg/dL (0.7-1.3) Estimated GFR (Cockcroft-Gault) 54.6 Glucose Level 259 mg/dL (70-99) Calcium Level 9.4 mg/dL (8.5-10.1) Total Bilirubin 0.8 mg/dL (0.2-1.0) Direct Bilirubin 0.2 mg/dL (0.0-0.2) Aspartate Amino Transf (AST/SGOT) 21 U/L (15-37) Alanine Aminotransferase (ALT/SGPT) 26 U/L (16-63) Alkaline Phosphatase 62 U/L (46-116) Total Protein 7.3 g/dL (6.4-8.2) Albumin 3.1 g/dL (3.4-5.0) Test 06/09/18 11:25 06/09/18 16:47 06/09/18 21:20 06/10/18 07:14 Glucose (Fingerstick) 262 mg/dL (70-99) 248 mg/dL (70-99) 310 mg/dL (70-99) 205 mg/dL (70-99) Test 06/10/18 10:41 Glucose (Fingerstick) 231 mg/dL (70-99) Laboratory Tests Test 06/09/18 16:47 06/09/18 21:20 06/10/18 07:14 06/10/18 10:41 Glucose (Fingerstick) 248 mg/dL (70-99) 310 mg/dL (70-99) 205 mg/dL (70-99) 231 mg/dL (70-99) Problem List Problems Medical Problems: (1) Abnormal EKG Status: Acute (2) Acute abdominal pain Status: Acute (3) Anemia Status: Acute Assessment/Plan s/p julissa dc drain can dc home, FU 1 week TITO CARR APRN Jun 10, 2018 12:49
[2018-06-10 15:05] VITALS: BP 124/83
== END 2018-06-10 19:00 | disposition home or self-care (01) | DRG 419 ==
LOC: ER 04:07 → 5 SOUTH 06:40 → OBSVTOIN 09:13
PROVIDERS: ADMIT Internal Medicine; ATTEND Internal Medicine
PROC: 0FT44ZZ Resection of Gallbladder, Percutaneous Endoscopic Approach (ICD-10-PCS; principal; 2018-06-07 14:00)
DX: K80.00 Calculus of gallbladder with acute cholecystitis without obstruction (principal); D64.9 Anemia, unspecified; I10 Essential (primary) hypertension; E78.00 Pure hypercholesterolemia, unspecified; E11.9 Type 2 diabetes mellitus without complications; Z87.11 Personal history of peptic ulcer disease; K66.0 Peritoneal adhesions (postprocedural) (postinfection); E78.5 Hyperlipidemia, unspecified
CPT/HCPCS: 36415; 71046; 74176; 74300; 76000; 76705; 80048; 80076; 82274; 82962; 83690; 84484; 85025; 85610; 88304; 90471; 90756; 93005; 96374; G0378; G0379; J0690; J1100; J1170; J1610; J1650; J1815; J2001; J2250; J2270; J2370; J2405; J2704; J2710; J3010; J3490; J7030; J7040; J7042; J7120; Q9967; 99285-25; Q2035

== ENCOUNTER 2020-01-24 16:55 | Inpatient (IN) | payer BC, MEDICARE ==
[~2020-01-24] VITALS: Ht 160 cm; Wt 63.6 kg
[~2020-01-24 16:55] MED LIST: ATOR40TA59 PO; GLIP10TA13 PO; HYDR-2761 PO; LISI10TA2 PO; METF10007 PO; SITA100T PO
[2020-01-24] MEDS ORDERED: IV NORMAL SALINE 1000ML BAG 1,000 ML IV SCH (18:07)
--- NOTE | 2020-01-24 18:19 | PHYS DOC ---
Past Medical History Past Medical History: Diabetes-Type II, High Cholesterol, Hypertension, Other Additional Past Medical Histor: Stomach Ulcers Past Surgical History: Other Additional Past Surgical Histo: Elbow Surgery Smoking Status: Former Smoker Alcohol Use: None Drug Use: None General Adult EDM: Chief Complaint: BLOOD SUGAR PROBLEM HPI: HPI: 69-year-old male past medical history significant for diabetes, diabetes and history of gastric ulcer (s/p 8U PRBC transfused in 1981), presents to the ED with complaints of generalized weakness for the past 4 days, epigastric abdominal discomfort, no relief with Mylanta and Tagamet. States he has not been able to sleep for the past week. Patient does report he has been drinking a lot of sugary beverages/juice. Does not routinely check his glucose. Denies known admitting team on was 3 1 given Patient describes his epigastric abdominal pain is tight, nonradiating for the past few days. States this is his typical gastric ulcer pain-no recent EGD. Last bowel movement was today and was normal brown color. Review of systems: Denies associated fever, chills, cough, dyspnea, hemoptysis, hematochezia, melena, hematemesis, nausea, vomiting, diarrhea, constipation, abdominal pain, chest pressure or heaviness, back pain, neurologic deficits, leg swelling, dysuria, increased urinary frequency. Review of Systems: Review of Systems: Constitutional: Denies fever or chills. [] Eyes: Denies change in visual acuity. [] HENT: Denies nasal congestion or sore throat. [] Respiratory: Denies cough or shortness of breath. [] Cardiovascular: Denies chest pain or edema. [] GI: Denies abdominal pain, nausea, vomiting, bloody stools or diarrhea. [] : Denies dysuria. [] Musculoskeletal: Denies back pain or joint pain. [] Integument: Denies rash. [] Neurologic: Denies headache, focal weakness or sensory changes. [] Endocrine: Denies polyuria or polydipsia. [] Lymphatic: Denies swollen glands. [] Psychiatric: Denies depression or anxiety. [] Heart Score: HEART Score for Chest Pain: HEART Score for Chest Pain Response (Comments) Value History Slighlty/Non-Suspicious 0 ECG Normal 0 Age > 65 2 Risk Factors 1 or 2 Risk Factors 1 Troponin < Normal Limit 0 Total 3 Risk Factors: Risk Factors: DM, Current or recent (<one month) smoker, HTN, HLP, family history of CAD, obesity. Risk Scores: Score 0 - 3: 2.5% MACE over next 6 weeks - Discharge Home Score 4 - 6: 20.3% MACE over next 6 weeks - Admit for Clinical Observation Score 7 - 10: 72.7% MACE over next 6 weeks - Early Invasive Strategies Current Medications: Current Medications Medications (Trade) Dose Ordered Sig/Judy Start Time Stop Time Status Last Admin Dose Admin Sodium Chloride 1,000 ml @ 1,000 mls/hr Q1H 01/24/20 18:07 01/24/20 19:06 Allergies: Allergies: Allergies Coded Allergies Type Severity Reaction Last Updated Verified No Known Drug Allergies 06/07/18 No Physical Exam: PE: Constitutional: Well developed, well nourished, no acute distress, non-toxic appearance. [] HENT: Normocephalic, atraumatic, bilateral external ears normal, oropharynx moist, no oral exudates, nose normal. [] Eyes: EOMI, conjunctiva normal, no discharge. [] Neck: Normal range of motion, no tenderness, supple, no stridor. [] Cardiovascular:Heart rate regular rhythm, no murmur [] Lungs & Thorax: Bilateral breath sounds clear to auscultation [] Abdomen: Bowel sounds normal, soft, no tenderness, no masses, no pulsatile masses. [] Skin: Warm, dry, no erythema, no rash. [] Back: No tenderness, no CVA tenderness. [] Extremities: No tenderness, no cyanosis, no clubbing, ROM intact, no edema. [] Neurologic: Alert and oriented X 3, normal motor function, normal sensory function, no focal deficits noted. [] Psychologic: Affect normal, judgement normal, mood normal. [] EKG: EKG: Normal sinus rhythm at 95 bpm, no axis deviation, T wave inversion lead III, normal intervals, 1 PVC, no ST elevations or ST depressions Radiology/Procedures: Radiology/Procedures: IMAGING REPORT Signed PATIENT: SILVERIO BURKETTACCOUNT: [id number] : 1950 LOCATION: ER AGE: 69 SEX: M EXAM STATUS: REG ER ORD. PHYSICIAN: DAVIS SALMON DO REASON: weak PROCEDURE: PORTABLE CHEST 1V Exam: Chest one view INDICATION: 06/07/2018 TECHNIQUE: Frontal view of the chest Comparisons: 06/07/2018 FINDINGS: The cardiomediastinal silhouette and pulmonary vessels are within normal limits. The lung and pleural spaces are clear. IMPRESSION: No acute cardiopulmonary process. Electronically signed by: Ru Perez MD (01/24/2020 7:08 PM) [id number] DICTATED and SIGNED BY: RU PEREZ MD DATE: 01/24/20 1908 Impression: Concern for uncontrolled diabetes in the setting of acute kidney injury (baselin e Cr 1.2) and epigastric abdominal discomfort. Initial troponin is unremarkable. EKG normal. I did discuss patient's care with his primary care physician Dr. Gore who accepts admission-we will trend troponins, give IVFs and repeat renal function. Course & Med Decision Making: Course & Med Decision Making Pertinent Labs and Imaging studies reviewed. (See chart for details) [] Dragon Disclaimer: Dragon Disclaimer: This electronic medical record was generated, in whole or in part, using a voice recognition dictation system. Departure Departure Impression: Primary Impression: Hyperglycemia due to diabetes mellitus Additional Impression: ANITHA (acute kidney injury) Disposition: ADMITTED INPATIENT Admitting Physician: Jorge Gore Referrals: JORGE GORE MD (PCP) Justicifation of Admission Dx: Justifications for Admission: Justification of Admission Dx: Yes Acute Renal Failure: 75% Reduction in GFR Comments: hyperglycemia DAVIS SALMON DO Jan 24, 2020 18:19
[2020-01-24 18:28] LABS: BASO # 0.1 x10^3/uL (0.0-0.2); BASO % 1 % (0-3); EOS # 0.4 x10^3/uL (0.0-0.7); EOS % 4 % (0-3); HEMATOCRIT 43.5 % (39.0-53.0); HEMOGLOBIN 14.1 g/dL (13.0-17.5); LYMPH # 2.3 x10^3/uL (1.0-4.8); LYMPH % 24 % (24-48); MEAN CORPUSCULAR HEMOGLOBIN 20 pg (25-35); MEAN CORPUSCULAR HGB CONC 32 g/dL (31-37); MEAN CORPUSCULAR VOLUME 61 fL (79-100); MONO # 0.7 x10^3/uL (0.0-1.1); MONO % 8 % (0-9); NEUT # 6.3 x10^3/uL (1.8-7.7); NEUT % 64 % (31-73); PLATELET COUNT 182 x10^3/uL (140-400); RED BLOOD COUNT 7.16 x10^6/uL (4.30-5.70); RED CELL DISTRIBUTION WIDTH 16.4 % (11.5-14.5); WHITE BLOOD COUNT 9.7 x10^3/uL (4.0-11.0)
[2020-01-24 18:38] LABS: CALCIUM 9.2 mg/dL (8.5-10.1); CREATININE 1.8 mg/dL (0.7-1.3); GFR 37.4; POTASSIUM 4.7 mmol/L (3.5-5.1)
[2020-01-24 18:41] LABS: PHOSPHORUS 4.2 mg/dL (2.6-4.7)
[2020-01-24 18:44] LABS: ALBUMIN 3.4 g/dL (3.4-5.0); ALBUMIN/GLOBULIN RATIO 0.9 (1.0-1.7); TOTAL BILIRUBIN 0.5 mg/dL (0.2-1.0); TOTAL PROTEIN 7.2 g/dL (6.4-8.2)
--- NOTE | 2020-01-24 19:11 | RAD ---
Exam: Chest one view INDICATION: 06/07/2018 TECHNIQUE: Frontal view of the chest Comparisons: 06/07/2018 FINDINGS: The cardiomediastinal silhouette and pulmonary vessels are within normal limits. The lung and pleural spaces are clear. IMPRESSION: No acute cardiopulmonary process. Electronically signed by: Ru Rob MD (01/24/2020 7:08 PM) [id number]
[2020-01-24 19:15] LABS: MICROCYTOSIS MOD; PLT ESTIMATE ADEQUATE (ADEQUATE)
[2020-01-24] MEDS ORDERED: MORPHINE SULFATE 4 MG/ML VIAL. IV PRN (20:00)
[2020-01-24] MEDS ORDERED: ONDANSETRON PF 4 MG/2 ML VIAL. IV PRN (20:00)
[2020-01-24 20:12] LABS: PROTHROMBIN TIME PATIENT 11.5 SEC (11.7-14.0)
[2020-01-24] MEDS ORDERED: DEXTROSE 50% 25 GM / 50ML DISP.SYRIN. IV PRN (20:15)
[2020-01-24] MEDS ORDERED: IV NORMAL SALINE 1000ML BAG 1,000 ML IV ONE (20:15)
[2020-01-24] MEDS ORDERED: IV DEXTROSE 5% 250 ML BAG. IV PRN (20:15)
[2020-01-24 20:31] LABS: BILIRUBIN,URINE NEGATIVE (NEG); CLARITY,URINE CLEAR; COLOR,URINE YELLOW; NITRITE,URINE NEGATIVE (NEG); PROTEIN,URINE 30 mg/dL (NEG-TRACE); UROBILINOGEN,URINE 0.2 mg/dL (0.2 mg/dL)
[2020-01-24 20:34] LABS: BACTERIA,URINE 0 /HPF (0-FEW); RBC,URINE RARE /HPF (0-2); SQUAMOUS EPITHELIAL CELL,UR FEW /LPF; WBC,URINE RARE /HPF (0-4)
[2020-01-24] MEDS: INSULIN GLARGINE SYRINGE. SQ SCH (20:53)
[2020-01-24] MEDS ORDERED: INSULIN NPH/REG INSULIN 70/30 300 UNITS/3 ML INSULN.PEN. SQ SCH (21:00)
[2020-01-24] MEDS ORDERED: INSULIN REGULAR 100 UNIT/ML 3ML VIAL. SQ ONE (21:00)
[2020-01-24 21:45] VITALS: BP 133/86
[2020-01-24 23:23] VITALS: BP 133/78
[2020-01-24] MEDS: ZOLPIDEM 5 MG TABLET. PO PRN (23:24)
[2020-01-25] MEDS ORDERED: INSULIN LISPRO 300 UNITS/3 ML VIAL. SQ ONE (02:15)
[2020-01-25 03:55] VITALS: BP 106/62
[2020-01-25 04:52] LABS: CALCIUM 8.3 mg/dL (8.5-10.1); CREATININE 1.5 mg/dL (0.7-1.3); GFR 46.1; POTASSIUM 4.1 mmol/L (3.5-5.1)
[2020-01-25 05:21] LABS: CHOLESTEROL/HDL RATIO 3.7
--- NOTE | 2020-01-25 06:37 | EKG ---
[facility] [address] [place] [address] Test Date: 2020-01-24 Test Time: 18:45:17 Pat Name: SILVERIO BURKETT Department: Room: 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
[2020-01-25] MEDS ORDERED: INSULIN LISPRO 300 UNITS/3 ML VIAL. SQ SCH (07:30)
[2020-01-25 07:45] VITALS: BP 147/72
[2020-01-25] MEDS: INSULIN LISPRO 300 UNITS/3 ML VIAL. SQ SCH ×6 (08:00→17:59)
[2020-01-25] MEDS: ATORVASTATIN CALCIUM 40 MG TABLET. PO SCH (09:01)
[2020-01-25] MEDS: LINAGLIPTIN 5 MG TABLET PO SCH (09:01)
--- NOTE | 2020-01-25 10:18 | PDOC ---
Provider Note Provider Note Pt seen.H&P dictated.#[id number] Justicifation of Admission Dx: Justifications for Admission: Justification of Admission Dx: Yes Diabetic Urgency: Diabetic Urgency GERMÁN GORE MD Jan 25, 2020 10:18
--- NOTE | 2020-01-25 10:54 | HP ---
ADMIT DATE: 01/24/2020 MEDICAL HISTORY AND PHYSICAL LOCATION: [facility]. REASON FOR ADMISSION TO THE HOSPITAL: Uncontrolled blood sugars, more than 700. The patient is a known diabetic, has been pretty good control until recently. HISTORY OF PRESENT ILLNESS: The patient is a 69-year-old male, patient with history of diabetes. He is on Amaryl and metformin, pretty good control, usually around 7-8 A1c. Lately has been feeling weak, thirsty and feeling tired, had labs drawn and shows blood sugar 750. The patient was sent to the Emergency Room for evaluation, bicarbonate of normal, not any ketoacidosis. The patient's BUN is usually around 1.2, went up to almost 2. He was dehydrated. The patient was admitted to the hospital, was started on insulin and also IV fluids. PAST MEDICAL HISTORY: Has a history of diabetes, hypertension, hyperlipidemia. PAST SURGICAL HISTORY: Left elbow surgery. ALLERGIES: No known drug allergies. MEDICATIONS AT HOME: The patient is on lisinopril 10 mg daily, metformin 1000 mg twice a day, atorvastatin 40 mg daily, Januvia 100 mg daily. PERSONAL HISTORY: Ex-smoker, quit 15 years ago. Denies alcohol or drug abuse. SOCIAL HISTORY: Lives with his . REVIEW OF SYMPTOMS: Denies any chest pain or shortness of breath. Complains of feeling weak, dry mouth and going to the bathroom a lot and lightheaded. PHYSICAL EXAMINATION: GENERAL: The patient is not in any distress now. VITAL SIGNS: At the time of admission shows a temperature 98, pulse 101, respirations 18, blood pressure 152/93, 96 on room air. HEENT: Head is atraumatic. Pupils equal. Oral cavity: No congestion. NECK: Supple. Thyroid not enlarged. JVD not elevated. CHEST: Symmetrical. CARDIOVASCULAR: S1, S2. LUNGS: Clear. ABDOMEN: Soft, no mass palpable. EXTERNAL GENITALIA: No Nicole. RECTAL: Deferred. EXTREMITIES: No calf tenderness, no edema. Pulses 1+. NEUROLOGIC: Moving all extremities. No focal deficits noted. LABORATORY DATA: White count is 9, hemoglobin 14, platelets 182. Electrolytes are sodium 134, potassium 4.7, chloride 98, bicarbonate 24, anion gap 12, BUN 19, creatinine 1.8, glucose 463. In the office, blood sugar was 750. LFTs were normal. Urine shows more than 1000 glucose in the urine, negative for leukocytes and nitrites. Chest x-ray is negative. EKG negative for ischemia. FINAL IMPRESSION: 1. Uncontrolled blood sugars, more than 750. 2. The patient was well controlled diabetic until recently. 3. Hypertension. 4. Hyperlipidemia. 5. Acute renal insufficiency. PLAN: 1. At this time, the patient was started on IV fluids. 2. If kidney function improves, the patient will be started on insulin 20 units at bedtime, 10 units with each meal with diabetic education, diabetic teaching and nutrition consult and monitor kidney function. Also, we will do an EKG and cardiac enzymes to make sure he does not have a silent myocardial infarction. GERMÁN GORE MD DR: SARAH/jamey JOB#: [id number] / [id number]
[2020-01-25 11:41] VITALS: BP 145/80
[2020-01-25] MEDS: IV NORMAL SALINE 1000ML BAG 1,000 ML IV SCH ×2 (12:50→21:34)
--- NOTE | 2020-01-25 13:49 | NUR ---
SW following for discharge planning. SW reviewed chart and coordinated care with RN. SW met with pt. Pt lives with his and 2 adult children and plans to return at discharge. Pt declined the need for care in the home. Pt on room air. Pt stated he is able to afford his medications and manage his diabetes in the home. SW to continue following.
[2020-01-25 15:27] VITALS: BP 134/70
[2020-01-25 19:52] VITALS: BP 142/87
[2020-01-25] MEDS ORDERED: HYDROcodone/APAP 5/325MG 1 TAB TABLET PO PRN (21:15)
[2020-01-25] MEDS: INSULIN GLARGINE SYRINGE. SQ SCH (21:45)
[2020-01-25] MEDS: ZOLPIDEM 5 MG TABLET. PO PRN (22:53)
[2020-01-25 23:47] VITALS: BP 134/86
[2020-01-26 01:08] LABS: HEMOGLOBIN A1C 11.4 % (4.8-5.6)
[2020-01-26 03:30] VITALS: BP 125/80
[2020-01-26 04:43] LABS: CALCIUM 7.8 mg/dL (8.5-10.1); CREATININE 1.3 mg/dL (0.7-1.3); GFR 54.4; POTASSIUM 4.1 mmol/L (3.5-5.1)
[2020-01-26 07:31] VITALS: BP 140/93
[2020-01-26] MEDS: IV NORMAL SALINE 1000ML BAG 1,000 ML IV SCH (08:35)
[2020-01-26] MEDS: ATORVASTATIN CALCIUM 40 MG TABLET. PO SCH (08:35)
[2020-01-26] MEDS: LINAGLIPTIN 5 MG TABLET PO SCH (08:35)
[2020-01-26] MEDS: INSULIN LISPRO 300 UNITS/3 ML VIAL. SQ SCH ×4 (08:39→12:11)
--- NOTE | 2020-01-26 10:17 | PDOC ---
PROGRESS NOTES Subjective Subjective feels good Objective Objective Vital Signs Date Time Temp Pulse Resp B/P (MAP) Pulse Ox O2 Delivery O2 Flow Rate FiO2 01/26/20 07:31 97.1 98 18 140/93 (109) 97 Room Air 97.1 Intake and Output 01/26/20 07:00 Intake Total 800 ml Output Total 1700 ml Balance -900 ml Intake Oral 800 ml Output Urine Total 1700 ml Physical Exam Abdomen: Normal bowel sounds, Soft Heart: Regular rate, Normal S1 Extremities: No clubbing General: Alert HEENT: Atraumatic Lungs: Clear to auscultation MUSCULOSKELETAL: No deformity, No swelling Neck: Supple Neuro: Normal speech Psych/Mental Status: Mental status NL Skin: No breakdown Diagnosis Problem List Problems Medical Problems: (1) ANITHA (acute kidney injury) Status: Acute (2) Hyperglycemia due to diabetes mellitus Status: Acute Assessment Assessment Problems Medical Problems: (1) ANITHA (acute kidney injury) Status: Acute (2) Hyperglycemia due to diabetes mellitus Status: Acute FINAL IMPRESSION: 1. Uncontrolled blood sugars, more than 750. 2. The patient was well controlled diabetic until recently. 3. Hypertension. 4. Hyperlipidemia. 5. Acute renal insufficiency. PLAN:blood sugars less than 200 kidney function back to normal A!C 11,started on insulin, BID dose. d/c home today . ekg and cardiac enzymes neg. 1. At this time, the patient was started on IV fluids. 2. If kidney function improves, the patient will be started on insulin 20 units at bedtime, 10 units with each meal with diabetic education, diabetic teaching and nutrition consult and monitor kidney function. Also, we will do an EKG and cardiac enzymes to make sure he does not have a silent myocardial infarction. Plan Plan of Care Problems Medical Problems: (1) ANITHA (acute kidney injury) Status: Acute (2) Hyperglycemia due to diabetes mellitus Status: Acute Comment Review of Relevant I have reviewed the following items chastity (where applicable) has been applied. Labs Laboratory Tests Test 01/25/20 11:08 01/25/20 16:56 01/25/20 20:32 01/26/20 04:10 Glucose (Fingerstick) 178 mg/dL (70-99) 283 mg/dL (70-99) 236 mg/dL (70-99) Sodium Level 143 mmol/L (136-145) Potassium Level 4.1 mmol/L (3.5-5.1) Chloride Level 109 mmol/L (98-107) Carbon Dioxide Level 26 mmol/L (21-32) Anion Gap 8 (6-14) Blood Urea Nitrogen 13 mg/dL (8-26) Creatinine 1.3 mg/dL (0.7-1.3) Estimated GFR (Cockcroft-Gault) 54.4 Glucose Level 101 mg/dL (70-99) Calcium Level 7.8 mg/dL (8.5-10.1) Test 01/26/20 07:07 Glucose (Fingerstick) 172 mg/dL (70-99) Medications Current Medications Acetaminophen/ Hydrocodone Bitart (Lortab 5/325) 1 tab PRN Q6HRS PRN PO PAIN Last administered on 01/25/20at 21:34; Start 01/25/20 at 21:15 Vitals/I & O Vital Sign - Last 24 Hours 01/25/20 01/25/20 01/25/20 01/25/20 11:41 15:27 19:52 23:47 Temp 98.0 97.7 98.0 98.0 98.0 97.7 98.0 98.0 Pulse 82 85 80 69 Resp 18 18 16 16 B/P (MAP) 145/80 (101) 134/70 (91) 142/87 (105) 134/86 (102) Pulse Ox 98 97 97 97 O2 Delivery Room Air Room Air Room Air Room Air 01/26/20 01/26/20 03:30 07:31 Temp 97.5 97.1 97.5 97.1 Pulse 75 98 Resp 16 18 B/P (MAP) 125/80 (95) 140/93 (109) Pulse Ox 95 97 O2 Delivery Room Air Room Air Intake and Output 01/25/20 01/25/20 01/26/20 15:00 23:00 07:00 Intake Total 200 ml 200 ml 400 ml Output Total 300 ml 400 ml 1000 ml Balance -100 ml -200 ml -600 ml Justicifation of Admission Dx: Justifications for Admission: Justification of Admission Dx: Yes GERMÁN GORE MD Jan 26, 2020 10:17
[2020-01-26] MEDS ORDERED: HUM100IN3 SQ ×2 (10:22)
[2020-01-26 11:24] VITALS: BP 147/74
--- NOTE | 2020-01-26 13:05 | NUR ---
Pt had small amount of pink tinged sputum. New for pt. no bleeding noted. Spoke to Dr Oquendo and will ask GI to see pt prior to discharge.
--- NOTE | 2020-01-26 13:34 | NUR ---
SW following for discharge planning. SW reviewed chart and spoke with RN. SW met with pt and pt's . Pt agreeable to referral at discharge. PARMJIT completed Patient Choice of Vendor form. PARMJIT phoned and faxed referral to [facility], , (fax). Pt on room air and oral antibiotics. Pt plans to return home with is and kids. Pt works for a [employer] and hopes to return to work soon. GI consulted today per blood in sputum. SW to put pt on weekend discharge list per potential discharge after consult. No further SW needs noted at this time. Addendum: 01/26/20 at 1522 by JENNIFER PARNELL Pt discharged today, 01/26/2020. [place] from [facility] notified. No further SW needs.
--- NOTE | 2020-01-26 14:34 | PDOC2 ---
GI CONSULT Reason For Consult: blood in sputum HPI: HPI: 69 y/o male admitted w/ hyperglycemia/uncontrolled DM (A1c > 11). Plans to discharge today but then coughed up some sputum with a pink tinge. We are asked to see for this. H/o "ulcer" on EGD ~15 years ago (?done here by Dr. Donald). No EGD since but describe three times that he can tell his ulcer is back - has stomach burning and rumbling, also some hematemesis and hematochezia/melena in the past (none recently). Takes Mylanta and Zantac or Tagamet for this, but more recently has been on pantoprazole QD ("every single day!") Recently took amoxicillin and had some "ulcer symptoms" (no bleeding). No n/v, dysphagia, abd pain, diarrhea, constipation, change in appetite ("I eat real good!"), or weight loss. Colonoscopy awhile ago, reportedly normal. S/p cholecystectomy for stones. No liver or pancreas history. Daily ASA. PMH: PMH: HTN, HLD, DM cholecystectomy w/ TITI, left elbow surgery FH: Family History: No pertinent hx Social History: Smoke: Quit ALCOHOL: none Drugs: None ROS: GEN: Denies fevers, chills, sweats HEENT: Denies blurred vision, sore throat CV: Denies chest pain RESP: Denies shortness of air, cough GI: Per HPI : Denies hematuria, dysuria ENDO: Denies weight changes NEURO: Denies confusion, dizziness MSK: Denies weakness, joint pain/swelling SKIN: Denies jaundice, pruritus Vitals: Vitals: Vital Signs Date Time Temp Pulse Resp B/P (MAP) Pulse Ox O2 Delivery O2 Flow Rate FiO2 01/26/20 11:24 97.6 64 20 147/74 (98) 96 Room Air 97.6 Labs: Labs: Laboratory Tests Test 01/25/20 16:56 01/25/20 20:32 01/26/20 04:10 01/26/20 07:07 Glucose (Fingerstick) 283 mg/dL (70-99) 236 mg/dL (70-99) 172 mg/dL (70-99) Sodium Level 143 mmol/L (136-145) Potassium Level 4.1 mmol/L (3.5-5.1) Chloride Level 109 mmol/L (98-107) Carbon Dioxide Level 26 mmol/L (21-32) Anion Gap 8 (6-14) Blood Urea Nitrogen 13 mg/dL (8-26) Creatinine 1.3 mg/dL (0.7-1.3) Estimated GFR (Cockcroft-Gault) 54.4 Glucose Level 101 mg/dL (70-99) Calcium Level 7.8 mg/dL (8.5-10.1) Test 01/26/20 11:09 Glucose (Fingerstick) 230 mg/dL (70-99) Allergies: Coded Allergies: No Known Drug Allergies (Unverified , 06/07/18) Medications: Current Medications Medications (Trade) Dose Ordered Sig/Judy Route PRN Reason Start Time Stop Time Status Last Admin Dose Admin Acetaminophen/ Hydrocodone Bitart (Lortab 5/325) 1 tab PRN Q6HRS PRN PO PAIN 01/25/20 21:15 01/25/20 21:34 Imaging: Imaging: CXR 01/24/20 IMPRESSION: No acute cardiopulmonary process. PE: GEN: NAD HEENT: Atraumatic, PERRL LUNGS: CTAB HEART: RRR ABD: NABS, S/ND/NT EXTREMITY: No edema SKIN: No rashes, no jaundice NEURO/PSYCH: A & O 3 A/P: A/P: Uncontrolled DM, ANITHA ?hemoptysis GERD, h/o "ulcer" CRC screen - reports normal colonoscopy at some point S/p cholecystectomy -- Has been on PPI at home - not here. Would restart. Okay to DC per GI. ?due for screening colonoscopy KEYONA MARTINEZ Jan 26, 2020 14:34
[2020-01-26 15:07] VITALS: BP 138/75
--- NOTE | 2020-01-26 15:15 | NUR ---
Pt discharged to home with . 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 Pt has issues with noncompliance. Both verbalized understanding of discharge instructions.
[2020-01-26] MEDS ORDERED: PANTOPRAZOLE 40 MG TABLET.DR. PO SCH (16:30)
--- NOTE | 2020-01-27 18:58 | PDOC ---
Provider Note Provider Note Discharge summary dictated.#[id number]. Justicifation of Admission Dx: Justifications for Admission: Justification of Admission Dx: Yes GERMÁN GORE MD Jan 27, 2020 18:58
--- NOTE | 2020-01-27 20:07 | DS ---
DATE OF DISCHARGE: 01/26/2020 REASON FOR ADMISSION TO THE HOSPITAL: 1. Uncontrolled blood sugars, more than 700 in the office. 2. Renal insufficiency. 3. Feeling dizzy and lightheaded. CONSULTATIONS: None. PROCEDURES: None. HOSPITAL COURSE: The patient is a 69-year-old male with history of diabetes, is pretty good control until last 6 months, has been not feeling well. He was having tired, fatigued and going to the bathroom a lot, thirsty and labs in the office shows blood sugar of 750. The patient is recommended to come to the Emergency Room. In the Emergency Room, his blood sugar was 466. His BUN and creatinine went up to 1.8. His hemoglobin A1c was 11.4. Cholesterol panel was normal. The patient was given IV fluids and his kidney came back with creatinine of 1.3. Blood sugar, he was started on insulin, less than 200 at the time of discharge. On the whole, the patient was feeling better and the patient was discharged. FINAL DIAGNOSES: 1. Uncontrolled blood sugars, more than 750. 2. Acute renal insufficiency secondary to uncontrolled diabetes. 3. Hypertension. 4. Hyperlipidemia. 5. Gastritis. DISPOSITION: Home. See MRAD for discharge medications. The patient was started on insulin at this time 70/30, 30 units in the morning, 20 units in the evening. Continue his home medications. GERMÁN GORE MD DR: SARAH/jamey JOB#: [id number] / [id number]
== END 2020-01-26 15:15 | disposition home or self-care (01) | DRG 638 ==
LOC: ER 16:55 → 6 SOUTH 19:00
PROVIDERS: ADMIT Internal Medicine; ATTEND Internal Medicine
DX: E11.65 Type 2 diabetes mellitus with hyperglycemia (principal); N17.9 Acute kidney failure, unspecified; E78.00 Pure hypercholesterolemia, unspecified; E78.5 Hyperlipidemia, unspecified; E86.0 Dehydration; I10 Essential (primary) hypertension; K29.70 Gastritis, unspecified, without bleeding; Z87.11 Personal history of peptic ulcer disease; Z87.891 Personal history of nicotine dependence; Z90.49 Acquired absence of other specified parts of digestive tract; K21.9 Gastro-esophageal reflux disease without esophagitis
CPT/HCPCS: 36415; 71045; 80048; 80053; 80061; 81001; 82962; 83036; 83690; 83735; 84100; 84443; 84484; 85025; 85610; 85730; 93005; 96374; J1815; J7030; 99285-25; G0378